=== PATIENT | male | born 1960 | race Caucasian/White ===

== ENCOUNTER 2023-08-13 15:01 | Inpatient (IN) | payer MEDICAID ==
[~2023-08-13] VITALS: Ht 177.8 cm; Wt 145.4 kg
[~2023-08-13 15:01] MED LIST: ACET325T55 PO; ASPI-1265 PO; ATOR40TA PO; CYCL-1 PO; LANS30CA37 PO; LISI40TA13 PO; RIVA20TA PO; VALP250C3 PO
[2023-08-13 19:50] LABS: BASOPHILS # (AUTO) 0.1 X10'3 (0-0.2); BASOPHILS % (AUTO) 0.4 % (0-1); EOSINOPHILS # (AUTO) 0.1 X10'3 (0-0.9); EOSINOPHILS % (AUTO) 0.8 % (0-6); HEMATOCRIT 50.7 % (42.0-52.0); HEMOGLOBIN 16.9 g/dl (14.0-17.9); LYMPHOCYTES # (AUTO) 3.5 X10'3 (1.1-4.8); MEAN CORPUSCULAR HGB CONC 33.3 g/dL (33.0-36.5); MEAN CORPUSCULAR VOLUME 87.1 FL (78-98); MEAN PLATELET VOLUME 8.1 FL (7.4-10.4); MONOCYTES # (AUTO) 0.9 X10'3 (0-0.9); MONOCYTES % (AUTO) 6.4 % (2-12); NEUTROPHILS # (AUTO) 9.8 X10'3 (1.8-7.7); NEUTROPHILS % (AUTO) 68.4 % (42-75); PLATELET COUNT 297 X10'3 (140-440); RED BLOOD COUNT 5.83 X10'6 (4.70-6.10); RED CELL DISTRIBUTION WIDTH 16.1 % (11.5-14.5); WHITE BLOOD COUNT 14.4 X10'3 (4.5-11.0)
[2023-08-13 20:17] LABS: ALBUMIN 3.8 G/DL (3.4-5.0); ANION GAP 12 (8-16); BLOOD UREA NITROGEN 9 MG/DL (7-18); BUN/CREATININE RATIO 11.3 (10.0-20.0); CALCIUM 8.6 MG/DL (8.5-10.1); CHLORIDE 100 MMOL/L (99-107); ETHANOL 269 MG/DL (<10); GLUCOSE 119 MG/DL (70-104); POTASSIUM 3.7 MMOL/L (3.5-5.1); SODIUM 138 MMOL/L (135-145); THYROID STIMULATING HORMONE 0.69 ulU/ml (0.34-4.50); TOTAL CARBON DIOXIDE 25.8 MMOL/L (24-32); eCRCL 98 ML/MIN; eGFR > 90 ML/MIN
[2023-08-13 21:14] LABS: BILIRUBIN,URINE NEGATIVE (Neg); CLARITY,URINE CLEAR (Clear); COLOR,URINE YELLOW (Yellow); GLUCOSE, URINE NEGATIVE (Neg); KETONES,URINE NEGATIVE (Neg); LEUKOCYTE ESTERASE ,URINE NEGATIVE (Neg); NITRITES, URINE NEGATIVE (Neg); OCCULT BLOOD,URINE NEGATIVE (Neg); PROTEIN,URINE NEGATIVE (Neg); UROBILINOGEN,URINE 0.2 E.U/dL (0.2-1.0)
[2023-08-13 21:21] LABS: UA COLLECTION TYPE CLN CATCH MIDSTREAM
[2023-08-13 21:32] LABS: URINE AMPHETAMINE SCREEN NEGATIVE (Neg); URINE BARBITUATE SCREEN NEGATIVE (Neg); URINE BENZODIAZEPINES SCREEN NEGATIVE (Neg); URINE CANNABINOID SCREEN POSITIVE (Neg); URINE COCAINE SCREEN NEGATIVE (Neg); URINE METHADONE SCREEN NEGATIVE (Neg); URINE OPIATE SCREEN NEGATIVE (Neg); URINE PHENCYCLIDINE SCREEN NEGATIVE (Neg)
[2023-08-14] MEDS: LORazepam 1 MG tablet PO ONE (00:08)
[2023-08-14] MEDS: LORazepam 2 mg/ml vial IM ONE (04:11)
[2023-08-14] MEDS ORDERED: magnesium 2GM in 50ml NS 50 ML IV PRN (04:40)
[2023-08-14] MEDS ORDERED: magnesium hydroxide 30ml (MOM) UD suspension PO PRN (04:40)
[2023-08-14] MEDS ORDERED: dextrose 50%-water 50ml dispensing syringe IV PRN (04:40)
[2023-08-14] MEDS ORDERED: potassium Cl 40MEQ/1/2NS 520ml 520 ML IV PRN (04:40)
[2023-08-14] MEDS ORDERED: magnesium 4gm in 100ml NS 100 ML IV PRN (04:40)
[2023-08-14] MEDS ORDERED: acetaminophen 325mg tablet PO PRN (04:40)
[2023-08-14] MEDS ORDERED: magnesium Cl slow-release 64mg tablet PO PRN (04:40)
[2023-08-14] MEDS ORDERED: ondansetron/PF 4mg/2ml inj IV PRN (04:40)
[2023-08-14] MEDS ORDERED: mag hydrox/Alum hydrox/simeth 30ml oral suspension PO PRN (04:40)
[2023-08-14] MEDS ORDERED: potassium Cl 20 mEq SR tablet PO PRN ×2 (04:40)
[2023-08-14 05:08] LABS: HEMOGLOBIN A1C 6.4 % (4.5-6.2)
[2023-08-14 05:14] LABS: MAGNESIUM 2.2 MG/DL (1.5-2.4); PHOSPHORUS 4.4 MG/DL (2.3-4.5)
[2023-08-14 05:31] VITALS: PULSE 120; RESP 35; O2SAT 95
[2023-08-14 07:16] VITALS: PULSE 104; RESP 29; O2SAT 93
[2023-08-14] MEDS: enoxaparin 40mg/0.4ml syringe SUBCUT SCH (08:00)
[2023-08-14] MEDS: K and/or MAG REPLACEMENT MC SCH (08:00)
[2023-08-14] MEDS: thiamine 100mg/ml 2ml inj. IV SCH (08:59)
[2023-08-14] MEDS: folic acid 1mg/0.2ml inj IV SCH (08:59)
[2023-08-14 11:23] VITALS: PULSE 107; RESP 25; O2SAT 96
[2023-08-14 12:38] LABS: ABG BASE EXCESS 0.1 mmol/L (-2.0-2.0); ABG OXYGEN SATURATION 95.7 % (94-97); ABG PCO2 (T) 40.4 mmHg (35.0-48.0); ABG PH (T) 7.406 (7.340-7.440); ABG PO2 (T) 77.3 mmHg (75.0-100.0); ALLEN'S TEST POSITIVE; FCOHb 1.2 % (0.0-3.9); FHHb 4.2 % (0.0-5.0); FMetHb 0.3 % (0.0-1.5); FO2Hb 94.3 % (94-97); MODE CPAP; PATIENT TEMPERATURE 36.5; PEEP 10 cm H2O; TOTAL HEMOGLOBIN 16.6 G/dl (14.0-17.9)
[2023-08-14] MEDS: LORazepam 2 mg/ml vial IV PRN (13:45)
[2023-08-14 16:14] VITALS: PULSE 108; RESP 30; O2SAT 97
[2023-08-14] MEDS: atenolol 50mg tablet PO SCH (17:35)
[2023-08-14 19:40] VITALS: PULSE 95; RESP 18; O2SAT 95
[2023-08-14] MEDS: haloperidol lactate 5mg/ml inj IM PRN (23:12)
[2023-08-15] MEDS: LORazepam 2 mg/ml vial IV PRN (01:31)
[2023-08-15 04:09] VITALS: PULSE 64; RESP 22; O2SAT 94
[2023-08-15 08:00] LABS: BASOPHILS # (AUTO) 0.1 X10'3 (0-0.2); BASOPHILS % (AUTO) 0.6 % (0-1); EOSINOPHILS # (AUTO) 0.1 X10'3 (0-0.9); EOSINOPHILS % (AUTO) 1.2 % (0-6); HEMATOCRIT 46.7 % (42.0-52.0); HEMOGLOBIN 15.3 g/dl (14.0-17.9); LYMPHOCYTES % (AUTO) 24.8 % (21-51); MEAN CORPUSCULAR HGB CONC 32.8 g/dL (33.0-36.5); MEAN CORPUSCULAR VOLUME 88.3 FL (78-98); MEAN PLATELET VOLUME 8.9 FL (7.4-10.4); MONOCYTES # (AUTO) 0.9 X10'3 (0-0.9); MONOCYTES % (AUTO) 7.7 % (2-12); NEUTROPHILS # (AUTO) 7.9 X10'3 (1.8-7.7); NEUTROPHILS % (AUTO) 65.7 % (42-75); PLATELET COUNT 279 X10'3 (140-440); RED BLOOD COUNT 5.29 X10'6 (4.70-6.10)
[2023-08-15 08:16] LABS: INR 0.9 INR; PROTHROMBIN TIME 10.2 SECONDS (9.0-12.0)
[2023-08-15] MEDS ORDERED: HYDROcodone/acetaminophen 10/325mg tab PO SCH (08:20)
[2023-08-15 08:27] VITALS: PULSE 80; RESP 16; O2SAT 94
[2023-08-15 08:44] LABS: ALANINE AMINOTRANSFERASE 41 U/L (12-78); ALBUMIN 3.3 G/DL (3.4-5.0); ALBUMIN/GLOBULIN RATIO 0.9 (1.1-1.5); ALKALINE PHOSPHATASE 117 IU/L (46-116); AMYLASE 26 U/L (25-115); ANION GAP 9 (8-16); ASPARTATE AMINO TRANSFERASE 21 U/L (10-37); BILIRUBIN,TOTAL 0.7 MG/DL (0.1-1.0); BLOOD UREA NITROGEN 15 MG/DL (7-18); BUN/CREATININE RATIO 17.4 (10.0-20.0); CALCIUM 8.8 MG/DL (8.5-10.1); CHLORIDE 102 MMOL/L (99-107); CHOL/HDL RATIO 4.7 (0.00-4.99); CHOLESTEROL 183 MG/DL (0-200); CREATININE 0.86 MG/DL (0.60-1.10); GLUCOSE 130 MG/DL (70-104); HDL CHOLESTEROL 39 MG/DL (35-60); LDL CHOLESTEROL 105 MG/DL (50-100); LIPASE 23 U/L (16-77); MAGNESIUM 2.2 MG/DL (1.5-2.4); PHOSPHORUS 3.6 MG/DL (2.3-4.5); POTASSIUM 4.6 MMOL/L (3.5-5.1); SODIUM 139 MMOL/L (135-145); TRIGLYCERIDES 175 MG/DL (20-135); eCRCL 91 ML/MIN; eGFR 90 ML/MIN
[2023-08-15] MEDS: HYDROcodone/acetaminophen 10/325mg tab PO PRN (10:26)
[2023-08-15] MEDS: LORazepam 2 mg/ml vial IM ONE (20:00)
[2023-08-15] MEDS: haloperidol lactate 5mg/ml inj IM ONE (20:00)
[2023-08-15] MEDS: rivaroxaban 20mg tablet PO SCH (21:00)
[2023-08-16 06:55] LABS: BASOPHILS # (AUTO) 0.1 X10'3 (0-0.2); BASOPHILS % (AUTO) 0.7 % (0-1); EOSINOPHILS # (AUTO) 0.1 X10'3 (0-0.9); HEMOGLOBIN 15.2 g/dl (14.0-17.9); LYMPHOCYTES # (AUTO) 1.9 X10'3 (1.1-4.8); LYMPHOCYTES % (AUTO) 21.7 % (21-51); MEAN CORPUSCULAR HEMOGLOBIN 29.3 PG (27.0-31.0); MEAN CORPUSCULAR VOLUME 88.7 FL (78-98); MEAN PLATELET VOLUME 8.9 FL (7.4-10.4); MONOCYTES # (AUTO) 0.7 X10'3 (0-0.9); MONOCYTES % (AUTO) 7.9 % (2-12); NEUTROPHILS # (AUTO) 6.2 X10'3 (1.8-7.7); NEUTROPHILS % (AUTO) 68.7 % (42-75); PLATELET COUNT 211 X10'3 (140-440); PROTHROMBIN TIME 10.4 SECONDS (9.0-12.0); RED BLOOD COUNT 5.19 X10'6 (4.70-6.10); RED CELL DISTRIBUTION WIDTH 16.2 % (11.5-14.5)
[2023-08-16] MEDS: LORazepam 1 MG tablet PO PRN (07:01)
[2023-08-16 07:32] LABS: ALANINE AMINOTRANSFERASE 45 U/L (12-78); ALBUMIN 3.1 G/DL (3.4-5.0); ALBUMIN/GLOBULIN RATIO 0.8 (1.1-1.5); ALKALINE PHOSPHATASE 105 IU/L (46-116); AMYLASE 25 U/L (25-115); ANION GAP 6 (8-16); ASPARTATE AMINO TRANSFERASE 23 U/L (10-37); BILIRUBIN,TOTAL 0.6 MG/DL (0.1-1.0); BLOOD UREA NITROGEN 12 MG/DL (7-18); BUN/CREATININE RATIO 15.4 (10.0-20.0); CALCIUM 8.2 MG/DL (8.5-10.1); CHLORIDE 104 MMOL/L (99-107); CREATININE 0.78 MG/DL (0.60-1.10); GLUCOSE 141 MG/DL (70-104); LIPASE 22 U/L (16-77); MAGNESIUM 2.4 MG/DL (1.5-2.4); PHOSPHORUS 5.3 MG/DL (2.3-4.5); POTASSIUM 4.2 MMOL/L (3.5-5.1); SODIUM 141 MMOL/L (135-145); TOTAL CARBON DIOXIDE 30.9 MMOL/L (24-32); TOTAL PROTEIN 6.9 G/DL (6.4-8.2); eCRCL 100 ML/MIN; eGFR > 90 ML/MIN
[2023-08-16] MEDS: NICOTINE POLACRILEX 2 MG LOZENGE BC PRN (15:33)
[2023-08-16 21:37] VITALS: PULSE 104; RESP 18; O2SAT 96
[2023-08-17 00:57] VITALS: PULSE 100; RESP 32; O2SAT 95
[2023-08-17] MEDS: traZODone 50mg tablet PO PRN (01:36)
[2023-08-17 07:07] VITALS: PULSE 84; RESP 16; O2SAT 93
[2023-08-17] MEDS: albuterol 2.5 MG/3 ML nebule NEB ONE ×2 (07:59→11:50)
[2023-08-17] MEDS: ipratropium 0.5 MG/2.5ML nebule IH ONE (07:59)
[2023-08-17] MEDS: budesonide 0.5mg/2ml UD nebule IH SCH (08:00)
[2023-08-17 08:04] LABS: BASOPHILS # (AUTO) 0.1 X10'3 (0-0.2); BASOPHILS % (AUTO) 0.9 % (0-1); EOSINOPHILS # (AUTO) 0.2 X10'3 (0-0.9); EOSINOPHILS % (AUTO) 2.3 % (0-6); HEMATOCRIT 45.6 % (42.0-52.0); HEMOGLOBIN 15.3 g/dl (14.0-17.9); LYMPHOCYTES # (AUTO) 2.3 X10'3 (1.1-4.8); MEAN CORPUSCULAR HEMOGLOBIN 29.6 PG (27.0-31.0); MEAN CORPUSCULAR HGB CONC 33.4 g/dL (33.0-36.5); MEAN CORPUSCULAR VOLUME 88.6 FL (78-98); MEAN PLATELET VOLUME 8.6 FL (7.4-10.4); MONOCYTES # (AUTO) 0.7 X10'3 (0-0.9); MONOCYTES % (AUTO) 7.3 % (2-12); NEUTROPHILS # (AUTO) 6.2 X10'3 (1.8-7.7); NEUTROPHILS % (AUTO) 65.5 % (42-75); PLATELET COUNT 223 X10'3 (140-440); RED BLOOD COUNT 5.15 X10'6 (4.70-6.10); RED CELL DISTRIBUTION WIDTH 16.2 % (11.5-14.5); WHITE BLOOD COUNT 9.4 X10'3 (4.5-11.0)
[2023-08-17 08:10] LABS: PROTHROMBIN TIME 10.4 SECONDS (9.0-12.0)
[2023-08-17 08:14] LABS: ALANINE AMINOTRANSFERASE 41 U/L (12-78); ALBUMIN 3.3 G/DL (3.4-5.0); ALBUMIN/GLOBULIN RATIO 0.9 (1.1-1.5); ALKALINE PHOSPHATASE 100 IU/L (46-116); AMYLASE 25 U/L (25-115); ANION GAP 9 (8-16); ASPARTATE AMINO TRANSFERASE 16 U/L (10-37); BILIRUBIN,TOTAL 0.5 MG/DL (0.1-1.0); BLOOD UREA NITROGEN 13 MG/DL (7-18); BUN/CREATININE RATIO 14.9 (10.0-20.0); CALCIUM 8.4 MG/DL (8.5-10.1); CHLORIDE 102 MMOL/L (99-107); CREATININE 0.87 MG/DL (0.60-1.10); GLUCOSE 135 MG/DL (70-104); LIPASE 17 U/L (16-77); MAGNESIUM 2.1 MG/DL (1.5-2.4); PHOSPHORUS 4.1 MG/DL (2.3-4.5); POTASSIUM 4.3 MMOL/L (3.5-5.1); SODIUM 141 MMOL/L (135-145); eCRCL 90 ML/MIN; eGFR 89 ML/MIN
[2023-08-17] MEDS: lisinopril 5mg tablet PO SCH (08:30)
[2023-08-17 11:51] VITALS: PULSE 80; RESP 18; O2SAT 96
[2023-08-17 11:59] VITALS: PULSE 86; RESP 18
[2023-08-17] MEDS ORDERED: FURO-150 PO (16:09)
[2023-08-17] MEDS: furosemide 20MG tablet PO ONE (17:36)
[2023-08-17 20:24] VITALS: PULSE 90; RESP 18; O2SAT 98
[2023-08-17] MEDS: atorvastatin 20mg tablet PO SCH (20:31)
[2023-08-17] MEDS: valproic acid 250mg capsule PO SCH (21:00)
[2023-08-18 03:03] LABS: PROTHROMBIN TIME 10.5 SECONDS (9.0-12.0)
[2023-08-18 03:07] LABS: ALANINE AMINOTRANSFERASE 39 U/L (12-78); ALBUMIN 3.2 G/DL (3.4-5.0); ALBUMIN/GLOBULIN RATIO 0.9 (1.1-1.5); ALKALINE PHOSPHATASE 95 IU/L (46-116); AMYLASE 25 U/L (25-115); ANION GAP 7 (8-16); ASPARTATE AMINO TRANSFERASE 14 U/L (10-37); BILIRUBIN,TOTAL 0.6 MG/DL (0.1-1.0); BLOOD UREA NITROGEN 14 MG/DL (7-18); BUN/CREATININE RATIO 14.3 (10.0-20.0); CALCIUM 8.5 MG/DL (8.5-10.1); CHLORIDE 106 MMOL/L (99-107); CREATININE 0.98 MG/DL (0.60-1.10); GLUCOSE 163 MG/DL (70-104); LIPASE 19 U/L (16-77); MAGNESIUM 2.2 MG/DL (1.5-2.4); PHOSPHORUS 4.4 MG/DL (2.3-4.5); SODIUM 142 MMOL/L (135-145); TOTAL CARBON DIOXIDE 28.7 MMOL/L (24-32); TOTAL PROTEIN 6.9 G/DL (6.4-8.2); eCRCL 80 ML/MIN; eGFR 77 ML/MIN
[2023-08-18 03:14] LABS: BASOPHILS # (AUTO) 0.1 X10'3 (0-0.2); BASOPHILS % (AUTO) 0.6 % (0-1); EOSINOPHILS # (AUTO) 0.3 X10'3 (0-0.9); EOSINOPHILS % (AUTO) 2.3 % (0-6); HEMATOCRIT 44.8 % (42.0-52.0); LYMPHOCYTES # (AUTO) 2.3 X10'3 (1.1-4.8); LYMPHOCYTES % (AUTO) 21.2 % (21-51); MEAN CORPUSCULAR HEMOGLOBIN 29.8 PG (27.0-31.0); MEAN CORPUSCULAR HGB CONC 33.6 g/dL (33.0-36.5); MEAN CORPUSCULAR VOLUME 88.7 FL (78-98); MONOCYTES # (AUTO) 0.8 X10'3 (0-0.9); MONOCYTES % (AUTO) 7.4 % (2-12); NEUTROPHILS # (AUTO) 7.5 X10'3 (1.8-7.7); NEUTROPHILS % (AUTO) 68.5 % (42-75); PLATELET COUNT 208 X10'3 (140-440); RED BLOOD COUNT 5.05 X10'6 (4.70-6.10); RED CELL DISTRIBUTION WIDTH 16.5 % (11.5-14.5); WHITE BLOOD COUNT 10.9 X10'3 (4.5-11.0)
[2023-08-18] MEDS: furosemide 20MG tablet PO SCH (08:00)
[2023-08-18] MEDS: cyclobenzaprine 10mg tablet PO PRN (08:26)
[2023-08-18] MEDS: folic acid 1mg tablet PO SCH (08:28)
[2023-08-18] MEDS: thiamine 100mg tablet PO SCH (08:28)
[2023-08-18 09:07] VITALS: PULSE 102; PULSE 99; RESP 16; O2SAT 99
[2023-08-19 07:36] LABS: BASOPHILS # (AUTO) 0.1 X10'3 (0-0.2); BASOPHILS % (AUTO) 0.8 % (0-1); EOSINOPHILS # (AUTO) 0.3 X10'3 (0-0.9); EOSINOPHILS % (AUTO) 2.7 % (0-6); HEMATOCRIT 46.1 % (42.0-52.0); HEMOGLOBIN 15.1 g/dl (14.0-17.9); LYMPHOCYTES # (AUTO) 2.6 X10'3 (1.1-4.8); LYMPHOCYTES % (AUTO) 23.3 % (21-51); MEAN CORPUSCULAR HEMOGLOBIN 29.7 PG (27.0-31.0); MEAN CORPUSCULAR HGB CONC 32.9 g/dL (33.0-36.5); MEAN CORPUSCULAR VOLUME 90.4 FL (78-98); MONOCYTES % (AUTO) 8.7 % (2-12); NEUTROPHILS # (AUTO) 7.1 X10'3 (1.8-7.7); NEUTROPHILS % (AUTO) 64.5 % (42-75); PLATELET COUNT 214 X10'3 (140-440); RED CELL DISTRIBUTION WIDTH 16.6 % (11.5-14.5)
[2023-08-19 07:58] LABS: ALANINE AMINOTRANSFERASE 35 U/L (12-78); ALBUMIN 3.3 G/DL (3.4-5.0); ALBUMIN/GLOBULIN RATIO 0.9 (1.1-1.5); ALKALINE PHOSPHATASE 95 IU/L (46-116); AMYLASE 26 U/L (25-115); ANION GAP 9 (8-16); ASPARTATE AMINO TRANSFERASE 16 U/L (10-37); BILIRUBIN,TOTAL 0.4 MG/DL (0.1-1.0); BLOOD UREA NITROGEN 14 MG/DL (7-18); BUN/CREATININE RATIO 16.9 (10.0-20.0); CALCIUM 8.2 MG/DL (8.5-10.1); CHLORIDE 106 MMOL/L (99-107); CREATININE 0.83 MG/DL (0.60-1.10); GLUCOSE 122 MG/DL (70-104); LIPASE 22 U/L (16-77); MAGNESIUM 2.2 MG/DL (1.5-2.4); PHOSPHORUS 5.3 MG/DL (2.3-4.5); POTASSIUM 4.3 MMOL/L (3.5-5.1); SODIUM 142 MMOL/L (135-145); TOTAL CARBON DIOXIDE 27.3 MMOL/L (24-32); eCRCL 94 ML/MIN; eGFR > 90 ML/MIN
[2023-08-19 08:52] VITALS: PULSE 74; RESP 17; O2SAT 97
[2023-08-19 08:57] VITALS: PULSE 70; RESP 17
[2023-08-20 09:28] VITALS: PULSE 89; RESP 14; O2SAT 91
[2023-08-21 08:34] VITALS: PULSE 92; RESP 16; O2SAT 97
[2023-08-21 08:40] VITALS: BP 141/96; TEMP 97.6; O2SAT 96
[2023-08-21 08:42] VITALS: PULSE 92; RESP 16
[2023-08-21 08:52] VITALS: RESP 18
== END 2023-08-21 11:05 | DRG 775 ==
LOC: ER 15:02 → ED HOLD 08-14 04:46
PROVIDERS: ADMIT Internal Medicine; ATTEND Internal Medicine
PROC: 5A09357 Assistance with Respiratory Ventilation, Less than 24 Consecutive Hours, Continuous Positive Airway Pressure (ICD-10-PCS; principal; 2023-08-14)
PROC: 5A09357 Assistance with Respiratory Ventilation, Less than 24 Consecutive Hours, Continuous Positive Airway Pressure (ICD-10-PCS; 2023-08-15)
PROC: 5A09357 Assistance with Respiratory Ventilation, Less than 24 Consecutive Hours, Continuous Positive Airway Pressure (ICD-10-PCS; 2023-08-16)
DX: F10.121 Alcohol abuse with intoxication delirium (principal); I48.20 Chronic atrial fibrillation, unspecified; R45.851 Suicidal ideations; D72.829 Elevated white blood cell count, unspecified; G62.9 Polyneuropathy, unspecified; F17.210 Nicotine dependence, cigarettes, uncomplicated; Z20.822 Contact with and (suspected) exposure to COVID-19; F10.131 Alcohol abuse with withdrawal delirium; F31.9 Bipolar disorder, unspecified; F41.9 Anxiety disorder, unspecified; G89.29 Other chronic pain; R07.9 Chest pain, unspecified; I10 Essential (primary) hypertension; I25.10 Atherosclerotic heart disease of native coronary artery without angina pectoris; Z87.11 Personal history of peptic ulcer disease; I25.2 Old myocardial infarction; Z82.3 Family history of stroke; Z83.3 Family history of diabetes mellitus; Z88.5 Allergy status to narcotic agent
CPT/HCPCS: 36415; 36600; 80048; 80053; 80061; 80305; 80320; 81003; 82150; 82803; 83036; 83690; 83735; 84100; 84443; 84484; 85018; 85025; 85610; 87811; 93005; 94640; 94660; 94760; 99285; G0378; J1630; J1650; J2060; J3411; J3490

== ENCOUNTER 2023-09-11 04:00 | Inpatient (IN) | payer OTHER, MEDICAID ==
[~2023-09-11] VITALS: Ht 175.3 cm; Wt 142.3 kg
[~2023-09-11 04:00] MED LIST changes: -ASPI-1265 PO; +FURO-150 PO; -LANS30CA37 PO
[2023-09-11 05:03] LABS: BILIRUBIN,URINE NEGATIVE (Neg); CLARITY,URINE CLEAR (Clear); COLOR,URINE YELLOW (Yellow); GLUCOSE, URINE NEGATIVE (Neg); KETONES,URINE TRACE mg/dl (Neg); LEUKOCYTE ESTERASE ,URINE NEGATIVE (Neg); NITRITES, URINE NEGATIVE (Neg); OCCULT BLOOD,URINE NEGATIVE (Neg); PROTEIN,URINE NEGATIVE (Neg); UROBILINOGEN,URINE 0.2 E.U/dL (0.2-1.0)
[2023-09-11 05:03] LABS: BASOPHILS # (AUTO) 0.1 X10'3 (0-0.2); BASOPHILS % (AUTO) 0.6 % (0-1); EOSINOPHILS # (AUTO) 0.1 X10'3 (0-0.9); HEMATOCRIT 45.9 % (42.0-52.0); HEMOGLOBIN 15.2 g/dl (14.0-17.9); LYMPHOCYTES # (AUTO) 1.8 X10'3 (1.1-4.8); LYMPHOCYTES % (AUTO) 15.8 % (21-51); MEAN CORPUSCULAR HEMOGLOBIN 29.8 PG (27.0-31.0); MEAN CORPUSCULAR HGB CONC 33.1 g/dL (33.0-36.5); MEAN CORPUSCULAR VOLUME 89.9 FL (78-98); MEAN PLATELET VOLUME 8.6 FL (7.4-10.4); MONOCYTES # (AUTO) 0.7 X10'3 (0-0.9); MONOCYTES % (AUTO) 6.1 % (2-12); NEUTROPHILS # (AUTO) 8.6 X10'3 (1.8-7.7); NEUTROPHILS % (AUTO) 76.5 % (42-75); PLATELET COUNT 259 X10'3 (140-440); RED BLOOD COUNT 5.11 X10'6 (4.70-6.10); RED CELL DISTRIBUTION WIDTH 16.2 % (11.5-14.5); WHITE BLOOD COUNT 11.3 X10'3 (4.5-11.0)
[2023-09-11 05:05] LABS: UA COLLECTION TYPE CLN CATCH MIDSTREAM
[2023-09-11 05:30] LABS: ALBUMIN 3.5 G/DL (3.4-5.0); ANION GAP 14 (8-16); BLOOD UREA NITROGEN 10 MG/DL (7-18); BUN/CREATININE RATIO 10.1 (10.0-20.0); CALCIUM 8.3 MG/DL (8.5-10.1); CHLORIDE 105 MMOL/L (99-107); CREATININE 0.99 MG/DL (0.60-1.10); ETHANOL < 10 MG/DL (<10); GLUCOSE 120 MG/DL (70-104); POTASSIUM 3.6 MMOL/L (3.5-5.1); SODIUM 144 MMOL/L (135-145); THYROID STIMULATING HORMONE 0.95 ulU/ml (0.34-4.50); TOTAL CARBON DIOXIDE 25.5 MMOL/L (24-32); eCRCL 75 ML/MIN; eGFR 76 ML/MIN
[2023-09-11 05:32] LABS: URINE AMPHETAMINE SCREEN NEGATIVE (Neg); URINE BARBITUATE SCREEN NEGATIVE (Neg); URINE BENZODIAZEPINES SCREEN NEGATIVE (Neg); URINE CANNABINOID SCREEN POSITIVE (Neg); URINE COCAINE SCREEN NEGATIVE (Neg); URINE METHADONE SCREEN NEGATIVE (Neg); URINE OPIATE SCREEN NEGATIVE (Neg); URINE PHENCYCLIDINE SCREEN NEGATIVE (Neg)
[2023-09-11] MEDS ORDERED: GABA300T28 PO (06:14)
[2023-09-11] MEDS ORDERED: ACET-1015 PO (06:14)
[2023-09-11] MEDS ORDERED: METO-395 PO (06:14)
[2023-09-11] MEDS ORDERED: SERT-153 PO (06:14)
[2023-09-11] MEDS ORDERED: ATOR20TA66 PO (06:16)
[2023-09-11] MEDS ORDERED: POTA-208 PO (06:18)
[2023-09-11] MEDS ORDERED: LAMO150T6 PO (06:19)
[2023-09-11] MEDS ORDERED: LISI-642 PO (13:48)
[2023-09-11] MEDS: rivaroxaban 20mg tablet PO SCH (20:49)
[2023-09-11] MEDS: potassium Cl 20 mEq SR tablet PO SCH (20:49)
[2023-09-11] MEDS: gabapentin 300mg capsule PO SCH (20:49)
[2023-09-11] MEDS: furosemide 20MG tablet PO SCH (20:49)
[2023-09-11] MEDS: valproic acid 250mg capsule PO SCH (20:50)
[2023-09-12] MEDS: metoprolol succinate 25mg (24-HOUR) SR. Tablet PO SCH (08:00)
[2023-09-12] MEDS: lisinopril 5mg tablet PO SCH (08:00)
[2023-09-12] MEDS: sertraline 50mg tablet PO SCH (08:48)
[2023-09-12] MEDS: lamoTRIgine 100mg tablet PO SCH (08:49)
[2023-09-12] MEDS: lamoTRIgine 25mg tablet PO SCH (08:49)
[2023-09-12] MEDS: atorvastatin 20mg tablet PO SCH (08:49)
[2023-09-12] MEDS ORDERED: lisinopril 10 MG tablet PO ONE (20:05)
[2023-09-12] MEDS: chlordiazePOXIDE 25mg capsule PO ONE (20:19)
[2023-09-12] MEDS: lisinopril 5mg tablet PO ONE (20:20)
[2023-09-13] MEDS: acetaminophen 325mg tablet PO PRN (08:00)
[2023-09-13 12:17] VITALS: PULSE 94; RESP 18; O2SAT 94
[2023-09-13] MEDS: ipratropium/albuterol 3ml nebule NEB SCH (12:17)
[2023-09-13 12:25] VITALS: PULSE 98; RESP 18
[2023-09-13] MEDS ORDERED: mag hydrox/Alum hydrox/simeth 30ml oral suspension PO PRN (23:20)
[2023-09-13] MEDS ORDERED: magnesium hydroxide 30ml (MOM) UD suspension PO PRN (23:20)
[2023-09-13] MEDS ORDERED: loperamide 2mg capsule PO PRN (23:20)
[2023-09-13 23:23] VITALS: RESP 15; O2SAT 95
[2023-09-13 23:28] VITALS: BP 109/73; PULSE 73; RESP 15; TEMP 98; O2SAT 95
[2023-09-14 07:00] VITALS: RESP 16; O2SAT 90
[2023-09-14 08:00] VITALS: BP 112/65; PULSE 86; RESP 16; TEMP 97; O2SAT 90
[2023-09-14 11:20] VITALS: PULSE 93; PULSE 98; RESP 16; RESP 18; O2SAT 96
[2023-09-14 11:36] LABS: CHOL/HDL RATIO 3.2 (0.00-4.99); CHOLESTEROL 152 MG/DL (0-200); HDL CHOLESTEROL 48 MG/DL (35-60); LDL CHOLESTEROL 83 MG/DL (50-100); TRIGLYCERIDES 130 MG/DL (20-135)
[2023-09-14 19:00] VITALS: RESP 16; O2SAT 94
[2023-09-14] MEDS ORDERED: NICOTINE POLACRILEX 4 MG LOZENGE BC PRN (19:50)
[2023-09-14] MEDS: nicotine 14mg patch - 24hr TD SCH (19:50)
[2023-09-14 20:00] VITALS: BP 123/74; PULSE 96; RESP 16; TEMP 98.4; O2SAT 94
[2023-09-14] MEDS ORDERED: NICOTINE POLACRILEX 2 MG LOZENGE BC PRN (20:02)
[2023-09-15 07:30] VITALS: BP 115/67; PULSE 94; RESP 20; TEMP 97.6; O2SAT 94
[2023-09-15] MEDS: atorvastatin 20mg tablet PO SCH (07:37)
[2023-09-15] MEDS: sertraline 50mg tablet PO SCH (07:38)
[2023-09-15 10:47] VITALS: PULSE 81; RESP 16; O2SAT 90
[2023-09-15 10:56] VITALS: PULSE 87; RESP 16
[2023-09-15 19:00] VITALS: RESP 16; O2SAT 94
[2023-09-15 20:00] VITALS: BP 117/73; PULSE 89; RESP 16; TEMP 97.5; O2SAT 94
[2023-09-16] VITALS (7 sets, daily range): BP systolic 117–126; BP diastolic 58–75; PULSE 67–98; RESP 16–18; TEMP 98.2; O2SAT 92–94
[2023-09-16] MEDS: potassium Cl 20 mEq SR tablet PO SCH (15:30)
[2023-09-16] MEDS: furosemide 20MG tablet PO SCH (15:30)
[2023-09-16] MEDS: traZODone 50mg tablet PO PRN (21:45)
[2023-09-16] MEDS: gabapentin 300mg capsule PO SCH (21:45)
[2023-09-17] VITALS (7 sets, daily range): BP systolic 96–107; BP diastolic 51–72; PULSE 74–83; RESP 16–18; TEMP 97.5–98; O2SAT 91–92
[2023-09-17] MEDS: LIDOcaine 5% patch TP SCH (07:39)
[2023-09-17] MEDS: ibuprofen tablet 400 MG TABLET PO SCH (07:43)
[2023-09-17] MEDS: acetaminophen 325mg tablet PO PRN (20:49)
[2023-09-18 07:00] VITALS: RESP 18; O2SAT 97
[2023-09-18 08:00] VITALS: BP 120/77; PULSE 87; RESP 18; TEMP 97.7; O2SAT 97
[2023-09-18 10:19] VITALS: PULSE 83; PULSE 85; RESP 18; O2SAT 94
[2023-09-18 19:00] VITALS: RESP 18; O2SAT 94
[2023-09-18 19:56] VITALS: BP 107/62; PULSE 82; RESP 18; TEMP 98; O2SAT 94
[2023-09-18 19:58] VITALS: PULSE 84; RESP 16; O2SAT 92
[2023-09-19] VITALS (7 sets, daily range): BP systolic 114–129; BP diastolic 60–66; PULSE 67–88; RESP 14–18; TEMP 98; O2SAT 91–95
[2023-09-19 10:28] LABS: BASOPHILS % (AUTO) 0.5 % (0-1); EOSINOPHILS # (AUTO) 0.3 X10'3 (0-0.9); EOSINOPHILS % (AUTO) 2.8 % (0-6); HEMATOCRIT 44.3 % (42.0-52.0); HEMOGLOBIN 14.5 g/dl (14.0-17.9); LYMPHOCYTES # (AUTO) 1.9 X10'3 (1.1-4.8); LYMPHOCYTES % (AUTO) 20.8 % (21-51); MEAN CORPUSCULAR HEMOGLOBIN 29.9 PG (27.0-31.0); MEAN CORPUSCULAR HGB CONC 32.8 g/dL (33.0-36.5); MEAN CORPUSCULAR VOLUME 91.2 FL (78-98); MONOCYTES # (AUTO) 0.6 X10'3 (0-0.9); MONOCYTES % (AUTO) 6.8 % (2-12); NEUTROPHILS # (AUTO) 6.3 X10'3 (1.8-7.7); NEUTROPHILS % (AUTO) 69.1 % (42-75); PLATELET COUNT 190 X10'3 (140-440); RED BLOOD COUNT 4.85 X10'6 (4.70-6.10); RED CELL DISTRIBUTION WIDTH 16.4 % (11.5-14.5); WHITE BLOOD COUNT 9.1 X10'3 (4.5-11.0)
[2023-09-19 10:43] LABS: ALANINE AMINOTRANSFERASE 25 U/L (12-78); ALBUMIN 3.1 G/DL (3.4-5.0); ALBUMIN/GLOBULIN RATIO 0.9 (1.1-1.5); ALKALINE PHOSPHATASE 82 IU/L (46-116); ANION GAP 5 (8-16); ASPARTATE AMINO TRANSFERASE 11 U/L (10-37); BILIRUBIN,TOTAL 0.3 MG/DL (0.1-1.0); BLOOD UREA NITROGEN 15 MG/DL (7-18); BUN/CREATININE RATIO 16.7 (10.0-20.0); CALCIUM 8.4 MG/DL (8.5-10.1); CHLORIDE 106 MMOL/L (99-107); GLUCOSE 149 MG/DL (70-104); POTASSIUM 4.4 MMOL/L (3.5-5.1); SODIUM 142 MMOL/L (135-145); TOTAL CARBON DIOXIDE 30.7 MMOL/L (24-32); TOTAL PROTEIN 6.5 G/DL (6.4-8.2); eCRCL 83 ML/MIN; eGFR 85 ML/MIN
[2023-09-20 07:00] VITALS: RESP 18; O2SAT 94
[2023-09-20 07:48] VITALS: BP 130/88; PULSE 75; RESP 12; TEMP 97; O2SAT 94
[2023-09-20 08:23] VITALS: PULSE 97; RESP 18; O2SAT 93
[2023-09-20 11:59] LABS: ALANINE AMINOTRANSFERASE 27 U/L (12-78); ALBUMIN 3.2 G/DL (3.4-5.0); ALBUMIN/GLOBULIN RATIO 0.9 (1.1-1.5); ALKALINE PHOSPHATASE 83 IU/L (46-116); ANION GAP 12 (8-16); ASPARTATE AMINO TRANSFERASE 7 U/L (10-37); BILIRUBIN,TOTAL 0.3 MG/DL (0.1-1.0); BLOOD UREA NITROGEN 13 MG/DL (7-18); BUN/CREATININE RATIO 14.6 (10.0-20.0); CHLORIDE 106 MMOL/L (99-107); CREATININE 0.89 MG/DL (0.60-1.10); GLUCOSE 122 MG/DL (70-104); POTASSIUM 4.5 MMOL/L (3.5-5.1); SODIUM 147 MMOL/L (135-145); TOTAL CARBON DIOXIDE 29.2 MMOL/L (24-32); TOTAL PROTEIN 6.9 G/DL (6.4-8.2); eCRCL 84 ML/MIN; eGFR 86 ML/MIN
[2023-09-20 19:00] VITALS: RESP 18; O2SAT 96
[2023-09-20 20:00] VITALS: BP 162/94; PULSE 83; RESP 18; TEMP 98.4; O2SAT 96
[2023-09-20 21:02] VITALS: PULSE 83; RESP 16; O2SAT 91
[2023-09-21] VITALS (7 sets, daily range): BP systolic 110–134; BP diastolic 53–93; PULSE 70–92; RESP 14–18; TEMP 97.5–98.5; O2SAT 91–97
[2023-09-22 07:00] VITALS: RESP 16; O2SAT 95
[2023-09-22 08:00] VITALS: BP 124/67; PULSE 72; RESP 16; TEMP 97.8; O2SAT 95
[2023-09-22 19:00] VITALS: BP 99/54; PULSE 94; RESP 14; TEMP 97.5; O2SAT 94
[2023-09-22 19:33] VITALS: PULSE 69; RESP 16; O2SAT 93
[2023-09-23] VITALS (7 sets, daily range): BP systolic 109–110; BP diastolic 60–68; PULSE 70–95; RESP 16–18; TEMP 97.2–97.7; O2SAT 91–94
[2023-09-24 07:30] VITALS: RESP 20; O2SAT 92
[2023-09-24 08:15] VITALS: BP 111/80; PULSE 89; RESP 16; TEMP 97.6; O2SAT 91
[2023-09-24 08:28] VITALS: PULSE 80; RESP 16; O2SAT 94
[2023-09-24 08:33] VITALS: PULSE 94; RESP 17
[2023-09-24] MEDS: acetaminophen 325mg tablet PO PRN (11:21)
[2023-09-24] MEDS ORDERED: VALP250C3 PO (11:48)
[2023-09-24] MEDS ORDERED: METO-395 PO (11:48)
[2023-09-24] MEDS ORDERED: ATOR40TA71 PO (11:48)
[2023-09-24] MEDS ORDERED: FURO20TA4 PO (11:48)
[2023-09-24] MEDS ORDERED: POTA-197 PO (11:48)
[2023-09-24] MEDS ORDERED: LAMO100T PO (11:48)
[2023-09-24] MEDS ORDERED: NICO-907 BC (11:48)
[2023-09-24] MEDS ORDERED: LAMO25TA5 PO (11:48)
[2023-09-24] MEDS ORDERED: SERT-153 PO (11:48)
[2023-09-24] MEDS ORDERED: SERT-433 PO (11:48)
[2023-09-24] MEDS ORDERED: TRAZ-251 PO (11:48)
[2023-09-24] MEDS ORDERED: gabapentin capsule PO (11:48)
[2023-09-24] MEDS ORDERED: RIVA20TA PO (11:48)
[2023-09-24] MEDS ORDERED: LISI-642 PO (11:48)
== END 2023-09-24 16:23 | disposition home or self-care (01) | DRG 885 ==
LOC: ER 04:00 → ADULT MH 09-13 16:00 → ER 09-13 22:25
PROVIDERS: ADMIT Psychiatry & Neurology Psychiatry; ATTEND Psychiatry & Neurology Psychiatry
PROC: 5A09357 Assistance with Respiratory Ventilation, Less than 24 Consecutive Hours, Continuous Positive Airway Pressure (ICD-10-PCS; principal; 2023-09-16)
DX: F33.1 Major depressive disorder, recurrent, moderate (principal); R45.851 Suicidal ideations; Z59.00 Homelessness unspecified; Z68.42 Body mass index [BMI] 45.0-49.9, adult; G89.29 Other chronic pain; I25.10 Atherosclerotic heart disease of native coronary artery without angina pectoris; F41.9 Anxiety disorder, unspecified; I10 Essential (primary) hypertension; E78.00 Pure hypercholesterolemia, unspecified; F43.10 Post-traumatic stress disorder, unspecified; G47.33 Obstructive sleep apnea (adult) (pediatric); F17.210 Nicotine dependence, cigarettes, uncomplicated; E66.01 Morbid (severe) obesity due to excess calories; G62.9 Polyneuropathy, unspecified; F10.20 Alcohol dependence, uncomplicated; Y90.0 Blood alcohol level of less than 20 mg/100 ml; M54.50 Low back pain, unspecified; Z20.822 Contact with and (suspected) exposure to COVID-19; Z83.3 Family history of diabetes mellitus; Z82.3 Family history of stroke; I69.331 Monoplegia of upper limb following cerebral infarction affecting right dominant side; I25.2 Old myocardial infarction; Z87.11 Personal history of peptic ulcer disease; Z63.4 Disappearance and death of family member; Z95.5 Presence of coronary angioplasty implant and graft; Z88.5 Allergy status to narcotic agent; Z79.899 Other long term (current) drug therapy; Z71.6 Tobacco abuse counseling
CPT/HCPCS: 36415; 80048; 80053; 80061; 80305; 80320; 81003; 82948; 83036; 83721; 84443; 85025; 87081; 87811; 94640; 94660; 94760; 99285

== ENCOUNTER 2024-04-13 13:03 | Inpatient (IN) | payer OTHER, MEDICAID ==
[~2024-04-13] VITALS: Ht 175.3 cm; Wt 141.0 kg
[2024-04-13] VITALS (17 sets, daily range): BP systolic 106–168; BP diastolic 69–90; PULSE 82–120; RESP 16–20; O2SAT 88–97
[~2024-04-13 13:03] MED LIST changes: +ACET-1015 PO; -ACET325T55 PO; -ATOR40TA PO; +ATOR40TA71 PO; -CYCL-1 PO; -FURO-150 PO; +FURO20TA4 PO; +LAMO100T PO; +LAMO25TA5 PO; +LISI-642 PO; -LISI40TA13 PO; +METO-395 PO; +NICO-907 BC; +POTA-197 PO; +SERT-153 PO; +SERT-433 PO; +TRAZ-251 PO; +gabapentin capsule PO; +rocuronium 10mg/ml inj IV ONE
[2024-04-13 13:29] LABS: BASOPHILS # (AUTO) 0.1 X10'3 (0-0.2); BASOPHILS % (AUTO) 1.4 % (0-1); EOSINOPHILS % (AUTO) 0.3 % (0-6); HEMATOCRIT 49.1 % (42.0-52.0); LYMPHOCYTES # (AUTO) 2.3 X10'3 (1.1-4.8); MEAN CORPUSCULAR HEMOGLOBIN 29.5 PG (27.0-31.0); MEAN CORPUSCULAR HGB CONC 32.6 g/dL (33.0-36.5); MEAN CORPUSCULAR VOLUME 90.4 FL (78-98); MONOCYTES # (AUTO) 0.8 X10'3 (0-0.9); MONOCYTES % (AUTO) 8.7 % (2-12); NEUTROPHILS % (AUTO) 64.6 % (42-75); PLATELET COUNT 267 X10'3 (140-440); RED BLOOD COUNT 5.43 X10'6 (4.70-6.10); RED CELL DISTRIBUTION WIDTH 16.4 % (11.5-14.5); WHITE BLOOD COUNT 9.2 X10'3 (4.5-11.0)
[2024-04-13 13:46] LABS: ALANINE AMINOTRANSFERASE 87 U/L (12-78); ALBUMIN 3.3 G/DL (3.4-5.0); ALBUMIN/GLOBULIN RATIO 0.8 (1.1-1.5); ALKALINE PHOSPHATASE 130 IU/L (46-116); ANION GAP 10 (8-16); ASPARTATE AMINO TRANSFERASE 82 U/L (10-37); BILIRUBIN,TOTAL 0.4 MG/DL (0.1-1.0); BLOOD UREA NITROGEN 2 MG/DL (7-18); BUN/CREATININE RATIO 2.6 (10.0-20.0); CALCIUM 7.6 MG/DL (8.5-10.1); CHLORIDE 100 MMOL/L (99-107); CREATININE 0.78 MG/DL (0.60-1.10); GLUCOSE 127 MG/DL (70-104); POTASSIUM 3.9 MMOL/L (3.5-5.1); SODIUM 139 MMOL/L (135-145); TOTAL CARBON DIOXIDE 29.3 MMOL/L (24-32); TOTAL PROTEIN 7.2 G/DL (6.4-8.2); eCRCL 96 ML/MIN; eGFR > 90 ML/MIN
[2024-04-13 13:53] LABS: PRO BRAIN NATRIURETIC PEPTIDE 45 PG/ML (0-125)
[2024-04-13] MEDS: normal saline 1000ml 1,000 ML IV ONE (14:35)
[2024-04-13] MEDS: diphenhydrAMINE 50 mg/ml inj IV ONE (15:00)
[2024-04-13] MEDS: haloperidol lactate 5mg/ml inj IM ONE (15:00)
[2024-04-13] MEDS: LORazepam 2 mg/ml vial IV ONE (15:05)
[2024-04-13] MEDS: rocuronium 10mg/ml inj IV ONE ×2 (15:18→15:24)
[2024-04-13] MEDS: etomidate 2mg/ml inj. IV ONE ×2 (15:18→15:24)
[2024-04-13] MEDS ORDERED: FENTANYL-0.9 % NACL/PF 100 ML IV SCH (15:55)
[2024-04-13] MEDS ORDERED: fentaNYL/PF 50MCG/1 ML 2ML syringe IV PRN (15:55)
[2024-04-13 16:01] LABS: ABG BASE EXCESS -4.1 mmol/L (-2.0-3.0); ABG HCO3 28.2 mmol/L (21.0-28.0); ABG PCO2 (T) 86.9 mmHg (35.0-48.0); ABG PH (T) 7.129 (7.350-7.450); ABG PO2 (T) 96.2 mmHg (83.0-108.0); ALLEN'S TEST POSITIVE; FCOHb 3.9 % (0.5-1.5); FHHb 5.7 % (0.0-5.0); FMetHb 0.4 % (0.0-1.5); MODE VENT - AC; RESPIRATORY RATE 16 b/min; TIDAL VOLUME 400 mL; TOTAL HEMOGLOBIN 17.3 G/dl (13.5-17.5)
[2024-04-13] MEDS ORDERED: magnesium hydroxide 30ml (MOM) UD suspension PO PRN (16:10)
[2024-04-13] MEDS ORDERED: acetaminophen 325mg tablet PO PRN (16:10)
[2024-04-13] MEDS: normal saline 1000ml 1,000 ML IV SCH (16:10)
[2024-04-13] MEDS: FENTANYL-0.9 % NACL/PF 100 ML IV SCH (16:37)
[2024-04-13] MEDS: propofol 1000mg/100ml bottle 100 ML IV SCH (16:38)
[2024-04-13] MEDS: LidoCAINE 2% Topical Jelly 11mL syringe (UROJET) TOP ONE (16:38)
[2024-04-13] MEDS: propofol 1000mg/100ml bottle 100 ML IV ONE (16:39)
[2024-04-13 17:11] LABS: URINE AMPHETAMINE SCREEN NEGATIVE (Neg); URINE BARBITUATE SCREEN NEGATIVE (Neg); URINE BENZODIAZEPINES SCREEN NEGATIVE (Neg); URINE CANNABINOID SCREEN POSITIVE (Neg); URINE COCAINE SCREEN NEGATIVE (Neg); URINE METHADONE SCREEN NEGATIVE (Neg); URINE OPIATE SCREEN NEGATIVE (Neg); URINE PHENCYCLIDINE SCREEN NEGATIVE (Neg)
[2024-04-13] MEDS ORDERED: LORazepam 2 mg/ml vial IV PRN ×2 (17:20)
[2024-04-13] MEDS ORDERED: dextrose 50%-water 50ml dispensing syringe IV PRN (17:20)
[2024-04-13] MEDS ORDERED: haloperidol lactate 5mg/ml inj IM PRN (17:20)
[2024-04-13] MEDS: pantoprazole 40 MG vial IV SCH (17:53)
[2024-04-13] MEDS: folic acid 1mg/0.2ml inj IV SCH (18:01)
[2024-04-13] MEDS: ipratropium/albuterol 3ml nebule NEB SCH (19:14)
[2024-04-13 19:39] LABS: ABG BASE EXCESS 2.8 mmol/L (-2.0-3.0); ABG HCO3 31.1 mmol/L (21.0-28.0); ABG OXYGEN SATURATION 92.7 % (94.0-98.0); ABG PCO2 (T) 59.8 mmHg (35.0-48.0); ABG PO2 (T) 67.9 mmHg (83.0-108.0); ALLEN'S TEST POSITIVE; FCOHb 2.4 % (0.5-1.5); FHHb 7.1 % (0.0-5.0); FMetHb 0.1 % (0.0-1.5); FO2Hb 90.4 % (94.0-98.0); MODE VENT - prvc; PATIENT TEMPERATURE 35.9; PEEP 8 cm H2O; RESPIRATORY RATE 20 b/min; TIDAL VOLUME 475 mL; TOTAL HEMOGLOBIN 16.6 G/dl (13.5-17.5)
[2024-04-13] MEDS: thiamine 100mg/ml 2ml inj. IV SCH (20:27)
[2024-04-13] MEDS: dexamethasone sod phosphate 10mg/ml inj IV SCH (20:27)
[2024-04-14] VITALS (35 sets, daily range): BP systolic 109–162; BP diastolic 61–92; PULSE 72–103; RESP 19–23; O2SAT 95–100
[2024-04-14] MEDS: heparin, porcine 5000 units/ml vial SQ SCH (00:44)
[2024-04-14 02:27] LABS: INR 1.1 INR; PROTHROMBIN TIME 11.4 SECONDS (9.0-12.0)
[2024-04-14 02:30] LABS: BASOPHILS # (AUTO) 0.1 X10'3 (0-0.2); BASOPHILS % (AUTO) 0.8 % (0-1); EOSINOPHILS % (AUTO) 0 % (0-6); HEMATOCRIT 45.9 % (42.0-52.0); HEMOGLOBIN 14.9 g/dl (14.0-17.9); LYMPHOCYTES # (AUTO) 0.3 X10'3 (1.1-4.8); LYMPHOCYTES % (AUTO) 3.8 % (21-51); MEAN CORPUSCULAR HEMOGLOBIN 29.7 PG (27.0-31.0); MEAN CORPUSCULAR HGB CONC 32.5 g/dL (33.0-36.5); MEAN CORPUSCULAR VOLUME 91.4 FL (78-98); MEAN PLATELET VOLUME 8.4 FL (7.4-10.4); MONOCYTES # (AUTO) 0.2 X10'3 (0-0.9); MONOCYTES % (AUTO) 2.7 % (2-12); NEUTROPHILS # (AUTO) 8.6 X10'3 (1.8-7.7); NEUTROPHILS % (AUTO) 92.7 % (42-75); PLATELET COUNT 222 X10'3 (140-440); RED BLOOD COUNT 5.02 X10'6 (4.70-6.10); RED CELL DISTRIBUTION WIDTH 16.5 % (11.5-14.5); WHITE BLOOD COUNT 9.2 X10'3 (4.5-11.0)
[2024-04-14 02:34] LABS: ALANINE AMINOTRANSFERASE 83 U/L (12-78); ALBUMIN 2.9 G/DL (3.4-5.0); ALBUMIN/GLOBULIN RATIO 0.7 (1.1-1.5); ALKALINE PHOSPHATASE 116 IU/L (46-116); AMYLASE 17 U/L (25-115); ANION GAP 8 (8-16); ASPARTATE AMINO TRANSFERASE 80 U/L (10-37); BILIRUBIN,TOTAL 0.6 MG/DL (0.1-1.0); BLOOD UREA NITROGEN 3 MG/DL (7-18); BUN/CREATININE RATIO 4.3 (10.0-20.0); CALCIUM 7.3 MG/DL (8.5-10.1); CHLORIDE 102 MMOL/L (99-107); CREATININE 0.69 MG/DL (0.60-1.10); GLUCOSE 129 MG/DL (70-104); LIPASE 14 U/L (16-77); MAGNESIUM 1.9 MG/DL (1.5-2.4); PHOSPHORUS 2.6 MG/DL (2.3-4.5); POTASSIUM 4.4 MMOL/L (3.5-5.1); SODIUM 140 MMOL/L (135-145); eCRCL 108 ML/MIN; eGFR > 90 ML/MIN
[2024-04-14 03:33] LABS: ABG BASE EXCESS 2.7 mmol/L (-2.0-3.0); ABG HCO3 30.4 mmol/L (21.0-28.0); ABG OXYGEN SATURATION 94.3 % (94.0-98.0); ABG PCO2 (T) 59.7 mmHg (35.0-48.0); ABG PH (T) 7.327 (7.350-7.450); ABG PO2 (T) 77.8 mmHg (83.0-108.0); ALLEN'S TEST POSITIVE; FCOHb 0.8 % (0.5-1.5); FHHb 5.6 % (0.0-5.0); FMetHb 0.1 % (0.0-1.5); FO2Hb 93.5 % (94.0-98.0); MODE VENT - prvc; PATIENT TEMPERATURE 37.3; PEEP 8 cm H2O; RESPIRATORY RATE 20 b/min; TIDAL VOLUME 475 mL; TOTAL HEMOGLOBIN 15.9 G/dl (13.5-17.5)
[2024-04-14 13:25] LABS: ABG BASE EXCESS 4.1 mmol/L (-2.0-3.0); ABG HCO3 28.8 mmol/L (21.0-28.0); ABG OXYGEN SATURATION 94.1 % (94.0-98.0); ABG PCO2 (T) 44.2 mmHg (35.0-48.0); ABG PH (T) 7.435 (7.350-7.450); ABG PO2 (T) 71.1 mmHg (83.0-108.0); ALLEN'S TEST POSITIVE; FCOHb 0.6 % (0.5-1.5); FHHb 5.9 % (0.0-5.0); FMetHb 0.1 % (0.0-1.5); FO2Hb 93.4 % (94.0-98.0); MODE VENT - APRV; PATIENT TEMPERATURE 37.5; PEEP 8 cm H2O; RESPIRATORY RATE 20 b/min; TIDAL VOLUME 550 mL; TOTAL HEMOGLOBIN 15.5 G/dl (13.5-17.5)
[2024-04-14] MEDS ORDERED: magnesium hydroxide 30ml (MOM) UD suspension NG PRN (13:48)
[2024-04-14] MEDS: COMMUNICATION ORDER 1 EA MISC MC ONE (16:35)
[2024-04-14] MEDS: midazolam 100mg in NS 100ml 100 ML IV SCH (17:02)
[2024-04-14] MEDS: mineral oil/petrolatum ophthal oint EACHEYE SCH (20:14)
[2024-04-15] VITALS (39 sets, daily range): BP systolic 97–152; BP diastolic 54–86; PULSE 56–91; RESP 19–22; O2SAT 94–100
[2024-04-15 01:33] LABS: BASOPHILS % (AUTO) 0.3 % (0-1); EOSINOPHILS % (AUTO) 0 % (0-6); HEMATOCRIT 44.5 % (42.0-52.0); HEMOGLOBIN 14.3 g/dl (14.0-17.9); LYMPHOCYTES # (AUTO) 0.5 X10'3 (1.1-4.8); LYMPHOCYTES % (AUTO) 5.7 % (21-51); MEAN CORPUSCULAR HEMOGLOBIN 29.1 PG (27.0-31.0); MEAN CORPUSCULAR HGB CONC 32.2 g/dL (33.0-36.5); MEAN CORPUSCULAR VOLUME 90.5 FL (78-98); MEAN PLATELET VOLUME 8.8 FL (7.4-10.4); MONOCYTES # (AUTO) 0.3 X10'3 (0-0.9); MONOCYTES % (AUTO) 3.8 % (2-12); NEUTROPHILS # (AUTO) 7.2 X10'3 (1.8-7.7); NEUTROPHILS % (AUTO) 90.2 % (42-75); PLATELET COUNT 190 X10'3 (140-440); RED BLOOD COUNT 4.92 X10'6 (4.70-6.10); RED CELL DISTRIBUTION WIDTH 16.2 % (11.5-14.5)
[2024-04-15 01:49] LABS: ALANINE AMINOTRANSFERASE 63 U/L (12-78); ALBUMIN 2.7 G/DL (3.4-5.0); ALBUMIN/GLOBULIN RATIO 0.8 (1.1-1.5); ALKALINE PHOSPHATASE 103 IU/L (46-116); AMYLASE 14 U/L (25-115); ANION GAP 7 (8-16); ASPARTATE AMINO TRANSFERASE 60 U/L (10-37); BILIRUBIN,TOTAL 0.9 MG/DL (0.1-1.0); BLOOD UREA NITROGEN 6 MG/DL (7-18); BUN/CREATININE RATIO 10.3 (10.0-20.0); CHLORIDE 102 MMOL/L (99-107); CREATININE 0.58 MG/DL (0.60-1.10); GLUCOSE 167 MG/DL (70-104); LIPASE 15 U/L (16-77); PHOSPHORUS 1.6 MG/DL (2.3-4.5); POTASSIUM 3.8 MMOL/L (3.5-5.1); SODIUM 138 MMOL/L (135-145); TOTAL PROTEIN 6.2 G/DL (6.4-8.2); eCRCL 129 ML/MIN; eGFR > 90 ML/MIN
[2024-04-15 02:16] LABS: PROTHROMBIN TIME 10.4 SECONDS (9.0-12.0)
[2024-04-15 03:33] LABS: ABG BASE EXCESS 4.9 mmol/L (-2.0-3.0); ABG HCO3 31.1 mmol/L (21.0-28.0); ABG OXYGEN SATURATION 99.7 % (94.0-98.0); ABG PCO2 (T) 50.2 mmHg (35.0-48.0); ABG PH (T) 7.407 (7.350-7.450); ALLEN'S TEST POSITIVE; FCOHb 0.3 % (0.5-1.5); FHHb 0.3 % (0.0-5.0); FMetHb 0.1 % (0.0-1.5); FO2Hb 99.3 % (94.0-98.0); MODE VENT - prvc; PATIENT TEMPERATURE 36.5; PEEP 8 cm H2O; RESPIRATORY RATE 20 b/min; TIDAL VOLUME 550 mL; TOTAL HEMOGLOBIN 15.3 G/dl (13.5-17.5)
[2024-04-15] MEDS ORDERED: glucagon, human recombinant 1mg kit SUBCUT PRN (08:30)
[2024-04-15] MEDS ORDERED: Dextrose 10%-water IV solution 1,000 ML IV SCH (08:30)
[2024-04-15] MEDS ORDERED: DEXTROSE 15 GM of carb/4 tabs (each vial/BOTTLE has 4 tablets) PO PRN ×2 (08:30)
[2024-04-15] MEDS ORDERED: Neutra Phos packet PO PRN (08:55)
[2024-04-15] MEDS ORDERED: magnesium sulf-water 4G/100mL 100 ML IV PRN (08:55)
[2024-04-15] MEDS ORDERED: magnesium sulf-water 2g/50mL 50 ML IV PRN (08:55)
[2024-04-15] MEDS ORDERED: potassium Cl 20 mEq SR tablet PO PRN ×2 (08:55)
[2024-04-15] MEDS ORDERED: sodium phosphate inj. 30 MMOL in dextrose 5%-water 250 ML IV PRN (08:55)
[2024-04-15] MEDS ORDERED: Neutra Phos packet NG PRN (11:11)
[2024-04-15] MEDS ORDERED: POTASSIUM CHLORIDE 20 MEQ/15 ML oral solution NG PRN (11:11)
[2024-04-15] MEDS ORDERED: DEXTROSE 15 GM of carb/4 tabs (each vial/BOTTLE has 4 tablets) NG PRN ×2 (11:11)
[2024-04-15] MEDS: fentaNYL 2,500 MCG in Normal Saline 250ml IV soln bag IV SCH (13:07)
[2024-04-15] MEDS ORDERED: UNABLE TO OBTAIN (15:12)
[2024-04-15 15:14] LABS: ABG BASE EXCESS 3.4 mmol/L (-2.0-3.0); ABG HCO3 26.6 mmol/L (21.0-28.0); ABG OXYGEN SATURATION 95.9 % (94.0-98.0); ABG PCO2 (T) 35.8 mmHg (35.0-48.0); ABG PH (T) 7.488 (7.350-7.450); ALLEN'S TEST POSITIVE; FCOHb 0.7 % (0.5-1.5); FHHb 4.1 % (0.0-5.0); FMetHb 0.3 % (0.0-1.5); FO2Hb 94.9 % (94.0-98.0); MODE VENT - AC; PATIENT TEMPERATURE 36.8; PEEP 8 cm H2O; RESPIRATORY RATE 20 b/min; TIDAL VOLUME 550 mL; TOTAL HEMOGLOBIN 15.3 G/dl (13.5-17.5)
[2024-04-15] MEDS: insulin regular, human U-100 10ml vial - multi-dose SQ SCH (15:18)
[2024-04-15] MEDS ORDERED: NO HOME MEDS (15:23)
[2024-04-16] VITALS (49 sets, daily range): BP systolic 104–176; BP diastolic 62–101; PULSE 61–109; RESP 12–22; O2SAT 93–99
[2024-04-16 02:51] LABS: BASOPHILS % (AUTO) 0.1 % (0-1); EOSINOPHILS % (AUTO) 0 % (0-6); HEMATOCRIT 45.5 % (42.0-52.0); HEMOGLOBIN 14.6 g/dl (14.0-17.9); LYMPHOCYTES # (AUTO) 0.6 X10'3 (1.1-4.8); MEAN CORPUSCULAR HEMOGLOBIN 28.8 PG (27.0-31.0); MEAN CORPUSCULAR VOLUME 90.1 FL (78-98); MONOCYTES # (AUTO) 0.4 X10'3 (0-0.9); MONOCYTES % (AUTO) 3.3 % (2-12); NEUTROPHILS # (AUTO) 10.8 X10'3 (1.8-7.7); NEUTROPHILS % (AUTO) 91.6 % (42-75); PLATELET COUNT 186 X10'3 (140-440); RED BLOOD COUNT 5.05 X10'6 (4.70-6.10); RED CELL DISTRIBUTION WIDTH 16.5 % (11.5-14.5); WHITE BLOOD COUNT 11.8 X10'3 (4.5-11.0)
[2024-04-16 03:17] LABS: ANION GAP 4 (8-16); CHLORIDE 105 MMOL/L (99-107); POTASSIUM 3.7 MMOL/L (3.5-5.1); SODIUM 140 MMOL/L (135-145); TOTAL CARBON DIOXIDE 30.8 MMOL/L (24-32)
[2024-04-16 03:41] LABS: PROTHROMBIN TIME 10.4 SECONDS (9.0-12.0)
[2024-04-16 03:45] LABS: ALANINE AMINOTRANSFERASE 53 U/L (12-78); ALBUMIN 2.7 G/DL (3.4-5.0); ALBUMIN/GLOBULIN RATIO 0.8 (1.1-1.5); ALKALINE PHOSPHATASE 98 IU/L (46-116); AMYLASE 13 U/L (25-115); ASPARTATE AMINO TRANSFERASE 52 U/L (10-37); BILIRUBIN,TOTAL 0.6 MG/DL (0.1-1.0); BLOOD UREA NITROGEN 9 MG/DL (7-18); BUN/CREATININE RATIO 14.5 (10.0-20.0); CALCIUM 8.4 MG/DL (8.5-10.1); CREATININE 0.62 MG/DL (0.60-1.10); GLUCOSE 197 MG/DL (70-104); LIPASE 16 U/L (16-77); MAGNESIUM 2.3 MG/DL (1.5-2.4); PHOSPHORUS 1.6 MG/DL (2.3-4.5); TOTAL PROTEIN 6.2 G/DL (6.4-8.2); eCRCL 120 ML/MIN; eGFR > 90 ML/MIN
[2024-04-16 04:01] LABS: ABG BASE EXCESS 6.3 mmol/L (-2.0-3.0); ABG HCO3 28.3 mmol/L (21.0-28.0); ABG OXYGEN SATURATION 96.6 % (94.0-98.0); ABG PH (T) 7.551 (7.350-7.450); ABG PO2 (T) 76.7 mmHg (83.0-108.0); ALLEN'S TEST Modified; FCOHb 0.4 % (0.5-1.5); FHHb 3.4 % (0.0-5.0); FO2Hb 96.2 % (94.0-98.0); MODE PRVC; PEEP 8 cm H2O; RESPIRATORY RATE 20 b/min; TIDAL VOLUME 550 mL; TOTAL HEMOGLOBIN 15.8 G/dl (13.5-17.5)
[2024-04-16] MEDS: sodium phosphate inj. 15 MMOL in dextrose 5%-water 250 ML IV PRN (04:58)
[2024-04-16] MEDS: fentaNYL 2,500 MCG in Normal Saline 250ml IV soln bag IV SCH (06:39)
[2024-04-16] MEDS: MVI, adult No.4 with vit. K 10 ML in dextrose 5% water 500ml 500 ML IV SCH (08:07)
[2024-04-16] MEDS: furosemide 40mg/4ml inj IV ONE (10:38)
[2024-04-16] MEDS: furosemide 20 MG/2 ML vial IV SCH (13:26)
[2024-04-16 15:58] LABS: ABG BASE EXCESS 7.5 mmol/L (-2.0-3.0); ABG HCO3 31.6 mmol/L (21.0-28.0); ABG OXYGEN SATURATION 93.4 % (94.0-98.0); ABG PCO2 (T) 40.5 mmHg (35.0-48.0); ABG PH (T) 7.507 (7.350-7.450); ABG PO2 (T) 60.5 mmHg (83.0-108.0); ALLEN'S TEST POSITIVE; FCOHb 0.8 % (0.5-1.5); FHHb 6.5 % (0.0-5.0); FMetHb 0.1 % (0.0-1.5); FO2Hb 92.6 % (94.0-98.0); MODE VENT - PRVC; PATIENT TEMPERATURE 36.2; PEEP 8 cm H2O; RESPIRATORY RATE 16 b/min; TIDAL VOLUME 500 mL; TOTAL HEMOGLOBIN 16.6 G/dl (13.5-17.5)
[2024-04-17] VITALS (45 sets, daily range): BP systolic 99–158; BP diastolic 60–95; PULSE 76–140; RESP 16–20; O2SAT 89–98
[2024-04-17] MEDS: acetaminophen 325mg tablet NG PRN (01:28)
[2024-04-17 02:49] LABS: BASOPHILS % (AUTO) 0.1 % (0-1); EOSINOPHILS % (AUTO) 0.1 % (0-6); HEMATOCRIT 49.7 % (42.0-52.0); HEMOGLOBIN 16.2 g/dl (14.0-17.9); LYMPHOCYTES # (AUTO) 0.6 X10'3 (1.1-4.8); LYMPHOCYTES % (AUTO) 4.5 % (21-51); MEAN CORPUSCULAR HEMOGLOBIN 29.3 PG (27.0-31.0); MEAN CORPUSCULAR HGB CONC 32.7 g/dL (33.0-36.5); MEAN CORPUSCULAR VOLUME 89.7 FL (78-98); MEAN PLATELET VOLUME 8.7 FL (7.4-10.4); MONOCYTES # (AUTO) 0.1 X10'3 (0-0.9); NEUTROPHILS # (AUTO) 11.8 X10'3 (1.8-7.7); NEUTROPHILS % (AUTO) 94.3 % (42-75); PLATELET COUNT 147 X10'3 (140-440); RED BLOOD COUNT 5.54 X10'6 (4.70-6.10); RED CELL DISTRIBUTION WIDTH 16.3 % (11.5-14.5); WHITE BLOOD COUNT 12.5 X10'3 (4.5-11.0)
[2024-04-17 02:58] LABS: PROTHROMBIN TIME 10.4 SECONDS (9.0-12.0)
[2024-04-17 03:01] LABS: ALANINE AMINOTRANSFERASE 73 U/L (12-78); ALBUMIN 2.8 G/DL (3.4-5.0); ALBUMIN/GLOBULIN RATIO 0.8 (1.1-1.5); ALKALINE PHOSPHATASE 139 IU/L (46-116); AMYLASE 16 U/L (25-115); ANION GAP 7 (8-16); ASPARTATE AMINO TRANSFERASE 90 U/L (10-37); BILIRUBIN,TOTAL 1.1 MG/DL (0.1-1.0); BLOOD UREA NITROGEN 10 MG/DL (7-18); BUN/CREATININE RATIO 13.3 (10.0-20.0); CALCIUM 7.9 MG/DL (8.5-10.1); CHLORIDE 102 MMOL/L (99-107); CREATININE 0.75 MG/DL (0.60-1.10); GLUCOSE 121 MG/DL (70-104); LIPASE 16 U/L (16-77); MAGNESIUM 1.6 MG/DL (1.5-2.4); PHOSPHORUS 3.9 MG/DL (2.3-4.5); SODIUM 143 MMOL/L (135-145); TOTAL CARBON DIOXIDE 33.7 MMOL/L (24-32); TOTAL PROTEIN 6.5 G/DL (6.4-8.2); eCRCL 100 ML/MIN; eGFR > 90 ML/MIN
[2024-04-17 03:12] LABS: POTASSIUM 2.9 MMOL/L (3.5-5.1)
[2024-04-17 03:39] LABS: ABG BASE EXCESS 6.8 mmol/L (-2.0-3.0); ABG HCO3 33.8 mmol/L (21.0-28.0); ABG OXYGEN SATURATION 94.5 % (94.0-98.0); ABG PCO2 (T) 58.4 mmHg (35.0-48.0); ABG PH (T) 7.385 (7.350-7.450); ABG PO2 (T) 79.3 mmHg (83.0-108.0); ALLEN'S TEST Modified; FCOHb 0.6 % (0.5-1.5); FHHb 5.5 % (0.0-5.0); FMetHb 0.2 % (0.0-1.5); FO2Hb 93.7 % (94.0-98.0); MODE PRVC; PATIENT TEMPERATURE 37.9; PEEP 8 cm H2O; RESPIRATORY RATE 16 b/min; TIDAL VOLUME 500 mL; TOTAL HEMOGLOBIN 17.3 G/dl (13.5-17.5)
[2024-04-17] MEDS: potassium Cl 40MEQ/270ML bag 270 ML IV PRN (03:43)
[2024-04-17 11:48] LABS: POTASSIUM 3.5 MMOL/L (3.5-5.1)
[2024-04-17] MEDS: magnesium sulf-water 2g/50mL 50 ML IV ONE (12:26)
[2024-04-17] MEDS: levoFLOXACIN-Levaquin 750MG/D5 150 ML IV STA (12:38)
[2024-04-17] MEDS: CefTRIAXone/D5W-Rocephin 1gm 50 ML IV STA (13:52)
[2024-04-17] MEDS: POTASSIUM CHLORIDE 20 MEQ/15 ML oral solution PO SCH (13:57)
[2024-04-17] MEDS: MIDAZolam 5mg/ml 2ml vial IV ONE (14:01)
[2024-04-17 17:15] LABS: ABG BASE EXCESS 4.9 mmol/L (-2.0-3.0); ABG HCO3 32.4 mmol/L (21.0-28.0); ABG OXYGEN SATURATION 90.4 % (94.0-98.0); ABG PCO2 (T) 62.1 mmHg (35.0-48.0); ABG PH (T) 7.342 (7.350-7.450); ABG PO2 (T) 67.8 mmHg (83.0-108.0); ALLEN'S TEST POSITIVE; FCOHb 0.5 % (0.5-1.5); FHHb 9.5 % (0.0-5.0); FMetHb 0.1 % (0.0-1.5); FO2Hb 89.9 % (94.0-98.0); MODE VENT - PRVC; PATIENT TEMPERATURE 38.5; PEEP 8 cm H2O; RESPIRATORY RATE 16 b/min; TIDAL VOLUME 500 mL; TOTAL HEMOGLOBIN 17.5 G/dl (13.5-17.5)
[2024-04-17 19:20] LABS: BILIRUBIN,URINE MODERATE (Neg); CLARITY,URINE CLOUDY (Clear); COLOR,URINE AMBER (Yellow); GLUCOSE, URINE NEGATIVE (Neg); KETONES,URINE NEGATIVE (Neg); LEUKOCYTE ESTERASE ,URINE NEGATIVE (Neg); OCCULT BLOOD,URINE LARGE (Neg); PH,URINE 5.5 (4.8-8.0); PROTEIN,URINE 100 mg/dl (Neg)
[2024-04-17 19:30] LABS: UA COLLECTION TYPE FOLEY CATH
[2024-04-17 19:37] LABS: NITRITES, URINE NEGATIVE (Neg)
[2024-04-17 19:38] LABS: AMORPHOUS URATES 2+; BACTERIA,URINE 2+ /HPF (Neg); HYALINE CASTS 0-3 /LPF (NEGATIVE); RBC,URINE 50-100 /HPF (0-2); SQUAMOUS EPITHELIAL CELL,UR MODERATE /LPF (FEW); WBC,URINE 0-4 /HPF (0-4)
[2024-04-17] MEDS: fentaNYL 50mcg/ml PF inj. 2,500 MCG in normal saline 250ml IV soln 200 ML IV SCH (21:38)
[2024-04-17] MEDS: dexmedetomidin/NS 400mcg/100ml 100 ML IV SCH (21:57)
[2024-04-17] MEDS: midazolam 100mg in NS 100ml 100 ML IV SCH (22:05)
[2024-04-17] MEDS: midazolam 1 mg/ML 2ml injection ONE (22:23)
[2024-04-18] VITALS (43 sets, daily range): BP systolic 97–169; BP diastolic 64–96; PULSE 97–115; RESP 15–17; O2SAT 91–99
[2024-04-18] MEDS: phenobarbital inj 260 MG in normal saline 100ml IV soln IV ONE (00:19)
[2024-04-18 02:37] LABS: BASOPHILS % (AUTO) 0.1 % (0-1); EOSINOPHILS # (AUTO) 0.1 X10'3 (0-0.9); EOSINOPHILS % (AUTO) 0.4 % (0-6); HEMATOCRIT 46.9 % (42.0-52.0); HEMOGLOBIN 15.1 g/dl (14.0-17.9); LYMPHOCYTES # (AUTO) 0.5 X10'3 (1.1-4.8); LYMPHOCYTES % (AUTO) 3.8 % (21-51); MEAN CORPUSCULAR HEMOGLOBIN 29.3 PG (27.0-31.0); MEAN CORPUSCULAR HGB CONC 32.2 g/dL (33.0-36.5); MEAN PLATELET VOLUME 8.7 FL (7.4-10.4); MONOCYTES # (AUTO) 0.4 X10'3 (0-0.9); NEUTROPHILS # (AUTO) 12.7 X10'3 (1.8-7.7); NEUTROPHILS % (AUTO) 92.7 % (42-75); RED BLOOD COUNT 5.16 X10'6 (4.70-6.10); RED CELL DISTRIBUTION WIDTH 16.7 % (11.5-14.5); WHITE BLOOD COUNT 13.7 X10'3 (4.5-11.0)
[2024-04-18 02:42] LABS: INR 1.1 INR; PROTHROMBIN TIME 11.3 SECONDS (9.0-12.0)
[2024-04-18 02:46] LABS: ALANINE AMINOTRANSFERASE 85 U/L (12-78); ALBUMIN 2.1 G/DL (3.4-5.0); ALBUMIN/GLOBULIN RATIO 0.6 (1.1-1.5); ALKALINE PHOSPHATASE 92 IU/L (46-116); AMYLASE 12 U/L (25-115); ANION GAP 2 (8-16); ASPARTATE AMINO TRANSFERASE 88 U/L (10-37); BILIRUBIN,TOTAL 1.1 MG/DL (0.1-1.0); BLOOD UREA NITROGEN 19 MG/DL (7-18); BUN/CREATININE RATIO 19.6 (10.0-20.0); CALCIUM 7.7 MG/DL (8.5-10.1); CHLORIDE 102 MMOL/L (99-107); CREATININE 0.97 MG/DL (0.60-1.10); GLUCOSE 179 MG/DL (70-104); LIPASE 12 U/L (16-77); MAGNESIUM 1.9 MG/DL (1.5-2.4); PHOSPHORUS 3.6 MG/DL (2.3-4.5); POTASSIUM 4.1 MMOL/L (3.5-5.1); SODIUM 137 MMOL/L (135-145); TOTAL CARBON DIOXIDE 32.8 MMOL/L (24-32); TOTAL PROTEIN 5.9 G/DL (6.4-8.2); eCRCL 77 ML/MIN; eGFR 78 ML/MIN
[2024-04-18 03:38] LABS: ABG BASE EXCESS 1.1 mmol/L (-2.0-3.0); ABG HCO3 26.9 mmol/L (21.0-28.0); ABG PCO2 (T) 48.2 mmHg (35.0-48.0); ABG PH (T) 7.368 (7.350-7.450); ABG PO2 (T) 131.9 mmHg (83.0-108.0); ALLEN'S TEST Modified; FCOHb 1.1 % (0.5-1.5); FMetHb 0.2 % (0.0-1.5); FO2Hb 97.7 % (94.0-98.0); MODE prvc; PATIENT TEMPERATURE 37.7; PEEP 10 cm H2O; RESPIRATORY RATE 16 b/min; TIDAL VOLUME 500 mL
[2024-04-18 03:53] LABS: PLATELET COUNT 81 X10'3 (140-440)
[2024-04-18] MEDS: phenoBARBITAL sod 130mg/ml inj. IV PRN (04:30)
[2024-04-18] MEDS: CefTRIAXone/D5W-Rocephin 1gm 50 ML IV SCH (08:00)
[2024-04-18] MEDS: levoFLOXACIN-Levaquin 750MG/D5 150 ML IV SCH (08:00)
[2024-04-18] MEDS: fondaparinux 2.5 MG/0.5 ML syringe SUBCUT SCH (11:28)
[2024-04-18] MEDS: furosemide 20 MG/2 ML vial IV SCH (13:14)
[2024-04-18 18:44] LABS: ABG BASE EXCESS 1.8 mmol/L (-2.0-3.0); ABG HCO3 28.8 mmol/L (21.0-28.0); ABG OXYGEN SATURATION 95.1 % (94.0-98.0); ABG PCO2 (T) 54.6 mmHg (35.0-48.0); ABG PH (T) 7.341 (7.350-7.450); ABG PO2 (T) 79.4 mmHg (83.0-108.0); ALLEN'S TEST Modified; FHHb 4.8 % (0.0-5.0); FMetHb 0.1 % (0.0-1.5); FO2Hb 94.1 % (94.0-98.0); MODE prvc; PATIENT TEMPERATURE 37.3; PEEP 10 cm H2O; RESPIRATORY RATE 16 b/min; TIDAL VOLUME 500 mL; TOTAL HEMOGLOBIN 15.9 G/dl (13.5-17.5)
[2024-04-19] VITALS (44 sets, daily range): BP systolic 103–160; BP diastolic 57–85; PULSE 1–101; RESP 14–18; O2SAT 91–99
[2024-04-19 02:14] LABS: BASOPHILS % (AUTO) 0.1 % (0-1); EOSINOPHILS # (AUTO) 0.2 X10'3 (0-0.9); HEMATOCRIT 40.5 % (42.0-52.0); HEMOGLOBIN 12.9 g/dl (14.0-17.9); LYMPHOCYTES # (AUTO) 0.9 X10'3 (1.1-4.8); MEAN CORPUSCULAR HEMOGLOBIN 29.8 PG (27.0-31.0); MEAN CORPUSCULAR HGB CONC 31.8 g/dL (33.0-36.5); MEAN CORPUSCULAR VOLUME 93.5 FL (78-98); MEAN PLATELET VOLUME 9.8 FL (7.4-10.4); MONOCYTES # (AUTO) 0.8 X10'3 (0-0.9); MONOCYTES % (AUTO) 8.2 % (2-12); NEUTROPHILS # (AUTO) 7.6 X10'3 (1.8-7.7); NEUTROPHILS % (AUTO) 80.7 % (42-75); PLATELET COUNT 58 X10'3 (140-440); RED BLOOD COUNT 4.33 X10'6 (4.70-6.10); RED CELL DISTRIBUTION WIDTH 17.1 % (11.5-14.5); WHITE BLOOD COUNT 9.5 X10'3 (4.5-11.0)
[2024-04-19 02:29] LABS: ALANINE AMINOTRANSFERASE 56 U/L (12-78); ALBUMIN 1.2 G/DL (3.4-5.0); ALBUMIN/GLOBULIN RATIO 0.4 (1.1-1.5); ALKALINE PHOSPHATASE 59 IU/L (46-116); ANION GAP 4 (8-16); ASPARTATE AMINO TRANSFERASE 75 U/L (10-37); BILIRUBIN,TOTAL 0.6 MG/DL (0.1-1.0); BLOOD UREA NITROGEN 12 MG/DL (7-18); CALCIUM 6.3 MG/DL (8.5-10.1); CHLORIDE 111 MMOL/L (99-107); CREATININE 0.48 MG/DL (0.60-1.10); GLUCOSE 109 MG/DL (70-104); SODIUM 142 MMOL/L (135-145); TOTAL CARBON DIOXIDE 27.1 MMOL/L (24-32); TOTAL PROTEIN 4.3 G/DL (6.4-8.2); eCRCL 155 ML/MIN; eGFR > 90 ML/MIN
[2024-04-19 03:17] LABS: PLATELET ESTIMATE DECREASED; POLYCHROMASIA FEW
[2024-04-19 03:18] LABS: ANISOCYTOSIS 1+; ELLIPTOCYTES FEW
[2024-04-19] MEDS: POTASSIUM CHLORIDE 20 MEQ/15 ML oral solution NG PRN (03:23)
[2024-04-19 03:30] LABS: ABG BASE EXCESS 5.3 mmol/L (-2.0-3.0); ABG HCO3 32.2 mmol/L (21.0-28.0); ABG OXYGEN SATURATION 93.1 % (94.0-98.0); ABG PCO2 (T) 56.8 mmHg (35.0-48.0); ABG PH (T) 7.373 (7.350-7.450); ABG PO2 (T) 64.3 mmHg (83.0-108.0); ALLEN'S TEST Modified; FCOHb 1.2 % (0.5-1.5); FHHb 6.8 % (0.0-5.0); MODE PRVC; PATIENT TEMPERATURE 37.4; PEEP 10 cm H2O; RESPIRATORY RATE 16 b/min; TIDAL VOLUME 500 mL; TOTAL HEMOGLOBIN 15.3 G/dl (13.5-17.5)
[2024-04-19] MEDS: albumin (human) 25% 100ml IV 400 ML IV ONE (11:03)
[2024-04-19] MEDS: gelatin sponge, absorbable (Gelfoam 12-7MM) sponge TP ONE (11:15)
[2024-04-19] MEDS ORDERED: albumin (Human) 5% 250ml 250 ML IV SCH (11:44)
[2024-04-19] MEDS: albumin (Human) 5% 250ml 250 ML IV SCH (12:09)
[2024-04-19] MEDS: vancomycin/NS 1 GM ADD-VANTAGE 250 ML IV SCH (12:30)
[2024-04-19] MEDS ORDERED: metolazone 2.5mg tablet PO SCH (20:30)
[2024-04-19] MEDS: POTASSIUM CHLORIDE 20 MEQ/15 ML oral solution NG SCH (20:34)
[2024-04-19] MEDS: metolazone 2.5mg tablet PO ONE (20:49)
[2024-04-19] MEDS: docusate sodium 100mg/10ml UD cup PO ONE (20:50)
[2024-04-19 21:09] LABS: ABG HCO3 31.1 mmol/L (21.0-28.0); ABG OXYGEN SATURATION 96.1 % (94.0-98.0); ABG PCO2 (T) 52.3 mmHg (35.0-48.0); ABG PH (T) 7.394 (7.350-7.450); ABG PO2 (T) 82.4 mmHg (83.0-108.0); ALLEN'S TEST Modified; FCOHb 1.2 % (0.5-1.5); FHHb 3.8 % (0.0-5.0); FMetHb 0.3 % (0.0-1.5); FO2Hb 94.7 % (94.0-98.0); MODE prvc; PATIENT TEMPERATURE 37.4; PEEP 10 cm H2O; RESPIRATORY RATE 16 b/min; TIDAL VOLUME 500 mL; TOTAL HEMOGLOBIN 14.6 G/dl (13.5-17.5)
[2024-04-20] VITALS (47 sets, daily range): BP systolic 118–173; BP diastolic 64–103; PULSE 80–106; RESP 16–20; O2SAT 92–96
[2024-04-20] MEDS: erythromycin ethylsuccinate 200mg/5mL ORAL suspension PO SCH (00:07)
[2024-04-20 02:20] LABS: BASOPHILS % (AUTO) 0.2 % (0-1); EOSINOPHILS # (AUTO) 0.2 X10'3 (0-0.9); EOSINOPHILS % (AUTO) 2.9 % (0-6); HEMATOCRIT 41.2 % (42.0-52.0); HEMOGLOBIN 13.2 g/dl (14.0-17.9); LYMPHOCYTES # (AUTO) 0.6 X10'3 (1.1-4.8); LYMPHOCYTES % (AUTO) 9.5 % (21-51); MEAN CORPUSCULAR HEMOGLOBIN 29.1 PG (27.0-31.0); MONOCYTES # (AUTO) 0.7 X10'3 (0-0.9); MONOCYTES % (AUTO) 10.1 % (2-12); NEUTROPHILS # (AUTO) 5.3 X10'3 (1.8-7.7); NEUTROPHILS % (AUTO) 77.3 % (42-75); RED BLOOD COUNT 4.52 X10'6 (4.70-6.10); RED CELL DISTRIBUTION WIDTH 16.6 % (11.5-14.5); WHITE BLOOD COUNT 6.8 X10'3 (4.5-11.0)
[2024-04-20 03:08] LABS: ABG BASE EXCESS 4.1 mmol/L (-2.0-3.0); ABG HCO3 30.7 mmol/L (21.0-28.0); ABG OXYGEN SATURATION 94.6 % (94.0-98.0); ABG PCO2 (T) 54.1 mmHg (35.0-48.0); ABG PH (T) 7.373 (7.350-7.450); ALLEN'S TEST Modified; FCOHb 1.3 % (0.5-1.5); FHHb 5.3 % (0.0-5.0); FMetHb 0.3 % (0.0-1.5); FO2Hb 93.1 % (94.0-98.0); MODE prvc; PATIENT TEMPERATURE 37.1; PEEP 10 cm H2O; RESPIRATORY RATE 16 b/min; TIDAL VOLUME 500 mL; TOTAL HEMOGLOBIN 14.9 G/dl (13.5-17.5)
[2024-04-20 03:51] LABS: ALBUMIN 2.7 G/DL (3.4-5.0); ALBUMIN/GLOBULIN RATIO 0.7 (1.1-1.5); CALCIUM 8.8 MG/DL (8.5-10.1); CHLORIDE 99 MMOL/L (99-107); GLUCOSE 147 MG/DL (70-104); PHOSPHORUS 2.9 MG/DL (2.3-4.5); POTASSIUM 3.8 MMOL/L (3.5-5.1); TOTAL PROTEIN 6.5 G/DL (6.4-8.2); eCRCL 115 ML/MIN; eGFR > 90 ML/MIN
[2024-04-20 03:52] LABS: ANISOCYTOSIS 1+; NUCLEATED RED BLOOD CELLS 1 /100WBC (0-0); STOMATOCYTES FEW; TOTAL CELLS COUNTED 100
[2024-04-20 04:04] LABS: ANION GAP 7 (8-16); BLOOD UREA NITROGEN 14 MG/DL (7-18); SODIUM 137 MMOL/L (135-145); TOTAL CARBON DIOXIDE 31.2 MMOL/L (24-32)
[2024-04-20 04:05] LABS: ASPARTATE AMINO TRANSFERASE 143 U/L (10-37); BUN/CREATININE RATIO 21.5 (10.0-20.0); CREATININE 0.65 MG/DL (0.60-1.10); MAGNESIUM 2.1 MG/DL (1.5-2.4)
[2024-04-20 04:06] LABS: ALANINE AMINOTRANSFERASE 112 U/L (12-78); ALKALINE PHOSPHATASE 86 IU/L (46-116); PREALBUMIN 12.6 MG/DL (19-36)
[2024-04-20 04:44] LABS: BASOPHILS % (AUTO) 0.2 % (0-1); EOSINOPHILS # (AUTO) 0.2 X10'3 (0-0.9); EOSINOPHILS % (AUTO) 3.5 % (0-6); HEMATOCRIT 40.8 % (42.0-52.0); HEMOGLOBIN 13.5 g/dl (14.0-17.9); LYMPHOCYTES # (AUTO) 0.7 X10'3 (1.1-4.8); LYMPHOCYTES % (AUTO) 10.4 % (21-51); MEAN CORPUSCULAR HEMOGLOBIN 30.2 PG (27.0-31.0); MEAN CORPUSCULAR VOLUME 91.4 FL (78-98); MEAN PLATELET VOLUME 9.2 FL (7.4-10.4); MONOCYTES # (AUTO) 0.7 X10'3 (0-0.9); MONOCYTES % (AUTO) 11.1 % (2-12); NEUTROPHILS % (AUTO) 74.8 % (42-75); PLATELET COUNT 89 X10'3 (140-440); RED BLOOD COUNT 4.46 X10'6 (4.70-6.10); RED CELL DISTRIBUTION WIDTH 17.5 % (11.5-14.5); WHITE BLOOD COUNT 6.7 X10'3 (4.5-11.0)
[2024-04-20] MEDS: docusate sodium 100mg/10ml UD cup PO SCH (07:25)
[2024-04-20] MEDS: metolazone 2.5mg tablet PO SCH (07:32)
[2024-04-20] MEDS: risperiDONE 0.5mg tablet PO SCH (11:32)
[2024-04-20] MEDS: VANCOMYCIN LEVEL IV ONE (11:34)
[2024-04-20] MEDS: lactulose 20gm/30ml cup PO SCH (14:12)
[2024-04-20] MEDS: thiamine 100mg/ml 2ml inj. IV SCH (14:12)
[2024-04-20] MEDS: erythromycin ethylsuccinate 200mg/5mL ORAL suspension NG SCH (16:00)
[2024-04-20] MEDS: docusate sodium 100mg/10ml UD cup NG SCH (20:11)
[2024-04-20] MEDS: VANCOmycin 1250MG/NS 250ml Bag 250 ML IV SCH (20:11)
[2024-04-20] MEDS: lactulose 20gm/30ml cup NG SCH (20:11)
[2024-04-20] MEDS: metolazone 2.5mg tablet NG SCH (20:12)
[2024-04-21] VITALS (48 sets, daily range): BP systolic 130–171; BP diastolic 66–87; PULSE 101–118; RESP 16–46; O2SAT 91–97
[2024-04-21 03:44] LABS: ABG BASE EXCESS 11.8 mmol/L (-2.0-3.0); ABG OXYGEN SATURATION 90.3 % (94.0-98.0); ABG PCO2 (T) 55.8 mmHg (35.0-48.0); ABG PH (T) 7.453 (7.350-7.450); ABG PO2 (T) 57.9 mmHg (83.0-108.0); ALLEN'S TEST Modified; FCOHb 1.4 % (0.5-1.5); FHHb 9.5 % (0.0-5.0); FMetHb 0.3 % (0.0-1.5); FO2Hb 88.8 % (94.0-98.0); MODE PRVC; PATIENT TEMPERATURE 37.5; PEEP 7 cm H2O; RESPIRATORY RATE 16 b/min; TIDAL VOLUME 500 mL; TOTAL HEMOGLOBIN 15.4 G/dl (13.5-17.5)
[2024-04-21 04:22] LABS: BASOPHILS % (AUTO) 0.5 % (0-1); EOSINOPHILS # (AUTO) 0.2 X10'3 (0-0.9); EOSINOPHILS % (AUTO) 2.5 % (0-6); HEMATOCRIT 43.4 % (42.0-52.0); HEMOGLOBIN 14.3 g/dl (14.0-17.9); LYMPHOCYTES # (AUTO) 1.2 X10'3 (1.1-4.8); LYMPHOCYTES % (AUTO) 13.8 % (21-51); MEAN CORPUSCULAR HEMOGLOBIN 29.4 PG (27.0-31.0); MEAN CORPUSCULAR HGB CONC 32.8 g/dL (33.0-36.5); MEAN CORPUSCULAR VOLUME 89.7 FL (78-98); MEAN PLATELET VOLUME 8.7 FL (7.4-10.4); MONOCYTES # (AUTO) 1.1 X10'3 (0-0.9); MONOCYTES % (AUTO) 12.3 % (2-12); NEUTROPHILS # (AUTO) 6.1 X10'3 (1.8-7.7); NEUTROPHILS % (AUTO) 70.9 % (42-75); PLATELET COUNT 116 X10'3 (140-440); RED BLOOD COUNT 4.84 X10'6 (4.70-6.10); RED CELL DISTRIBUTION WIDTH 16.3 % (11.5-14.5); WHITE BLOOD COUNT 8.6 X10'3 (4.5-11.0)
[2024-04-21 04:35] LABS: ALANINE AMINOTRANSFERASE 159 U/L (12-78); ALBUMIN 3.4 G/DL (3.4-5.0); ALBUMIN/GLOBULIN RATIO 0.8 (1.1-1.5); ALKALINE PHOSPHATASE 97 IU/L (46-116); ANION GAP 5 (8-16); ASPARTATE AMINO TRANSFERASE 153 U/L (10-37); BILIRUBIN,TOTAL 1.5 MG/DL (0.1-1.0); BLOOD UREA NITROGEN 14 MG/DL (7-18); BUN/CREATININE RATIO 18.7 (10.0-20.0); CALCIUM 9.3 MG/DL (8.5-10.1); CHLORIDE 90 MMOL/L (99-107); CREATININE 0.75 MG/DL (0.60-1.10); GLUCOSE 171 MG/DL (70-104); POTASSIUM 3.6 MMOL/L (3.5-5.1); SODIUM 131 MMOL/L (135-145); TOTAL CARBON DIOXIDE 35.7 MMOL/L (24-32); TOTAL PROTEIN 7.5 G/DL (6.4-8.2); eCRCL 100 ML/MIN; eGFR > 90 ML/MIN
[2024-04-21] MEDS: folic acid 1mg/0.2ml inj IV SCH (07:57)
[2024-04-21] MEDS: risperiDONE 0.5mg tablet NG SCH (09:31)
[2024-04-21] MEDS: COMMUNICATION ORDER 1 EA MISC MC ONE (14:03)
[2024-04-21] MEDS: VANCOMYCIN LEVEL IV ONE (19:30)
[2024-04-21 21:56] LABS: ALANINE AMINOTRANSFERASE 135 U/L (12-78); ALBUMIN 3.3 G/DL (3.4-5.0); ALBUMIN/GLOBULIN RATIO 0.9 (1.1-1.5); ALKALINE PHOSPHATASE 89 IU/L (46-116); ANION GAP 7 (8-16); ASPARTATE AMINO TRANSFERASE 91 U/L (10-37); BILIRUBIN,TOTAL 1.5 MG/DL (0.1-1.0); BLOOD UREA NITROGEN 16 MG/DL (7-18); BUN/CREATININE RATIO 19.3 (10.0-20.0); CHLORIDE 91 MMOL/L (99-107); CREATININE 0.83 MG/DL (0.60-1.10); GLUCOSE 225 MG/DL (70-104); PHOSPHORUS 3.6 MG/DL (2.3-4.5); SODIUM 134 MMOL/L (135-145); TOTAL CARBON DIOXIDE 36.3 MMOL/L (24-32); TOTAL PROTEIN 7.1 G/DL (6.4-8.2); eCRCL 90 ML/MIN; eGFR > 90 ML/MIN
[2024-04-21 22:43] LABS: VANCOMYCIN,TROUGH 169.2 ug/mL (10.0-20.0)
[2024-04-22] VITALS (44 sets, daily range): BP systolic 95–161; BP diastolic 58–91; PULSE 63–105; RESP 14–32; O2SAT 90–100
[2024-04-22] MEDS: erythromycin ethylsuccinate 200mg/5mL ORAL suspension NG SCH (01:19)
[2024-04-22] MEDS: dexmedetomidin/NS 400mcg/100ml 100 ML IV PRN (01:20)
[2024-04-22 02:42] LABS: BASOPHILS % (AUTO) 0.4 % (0-1); EOSINOPHILS # (AUTO) 0.2 X10'3 (0-0.9); EOSINOPHILS % (AUTO) 1.4 % (0-6); HEMATOCRIT 43.2 % (42.0-52.0); LYMPHOCYTES # (AUTO) 1.4 X10'3 (1.1-4.8); LYMPHOCYTES % (AUTO) 12.4 % (21-51); MEAN CORPUSCULAR HEMOGLOBIN 28.8 PG (27.0-31.0); MEAN CORPUSCULAR HGB CONC 32.4 g/dL (33.0-36.5); MEAN CORPUSCULAR VOLUME 88.9 FL (78-98); MEAN PLATELET VOLUME 8.3 FL (7.4-10.4); MONOCYTES # (AUTO) 1.2 X10'3 (0-0.9); MONOCYTES % (AUTO) 10.9 % (2-12); NEUTROPHILS # (AUTO) 8.5 X10'3 (1.8-7.7); NEUTROPHILS % (AUTO) 74.9 % (42-75); PLATELET COUNT 141 X10'3 (140-440); RED BLOOD COUNT 4.85 X10'6 (4.70-6.10); RED CELL DISTRIBUTION WIDTH 16.3 % (11.5-14.5); WHITE BLOOD COUNT 11.3 X10'3 (4.5-11.0)
[2024-04-22 02:55] LABS: ALANINE AMINOTRANSFERASE 133 U/L (12-78); ALBUMIN 3.4 G/DL (3.4-5.0); ALBUMIN/GLOBULIN RATIO 0.9 (1.1-1.5); ALKALINE PHOSPHATASE 93 IU/L (46-116); ANION GAP 6 (8-16); ASPARTATE AMINO TRANSFERASE 82 U/L (10-37); BILIRUBIN,TOTAL 1.3 MG/DL (0.1-1.0); BLOOD UREA NITROGEN 16 MG/DL (7-18); BUN/CREATININE RATIO 20.3 (10.0-20.0); CALCIUM 9.4 MG/DL (8.5-10.1); CHLORIDE 92 MMOL/L (99-107); CREATININE 0.79 MG/DL (0.60-1.10); GLUCOSE 227 MG/DL (70-104); MAGNESIUM 2.1 MG/DL (1.5-2.4); PHOSPHORUS 3.1 MG/DL (2.3-4.5); POTASSIUM 3.3 MMOL/L (3.5-5.1); SODIUM 134 MMOL/L (135-145); TOTAL CARBON DIOXIDE 36.1 MMOL/L (24-32); TOTAL PROTEIN 7.4 G/DL (6.4-8.2); eCRCL 94 ML/MIN; eGFR > 90 ML/MIN
[2024-04-22 04:44] LABS: ABG BASE EXCESS 10.6 mmol/L (-2.0-3.0); ABG HCO3 35.8 mmol/L (21.0-28.0); ABG OXYGEN SATURATION 94.5 % (94.0-98.0); ABG PCO2 (T) 48.8 mmHg (35.0-48.0); ABG PH (T) 7.483 (7.350-7.450); ALLEN'S TEST Modified; FHHb 5.4 % (0.0-5.0); FMetHb 0.3 % (0.0-1.5); FO2Hb 93.3 % (94.0-98.0); MODE vent-ac prvc; PATIENT TEMPERATURE 37.1; PEEP 7 cm H2O; RESPIRATORY RATE 16 b/min; TIDAL VOLUME 500 mL; TOTAL HEMOGLOBIN 15.3 G/dl (13.5-17.5)
[2024-04-22] MEDS: FENTANYL 1000MCG/NS 100 ML BAG /PF IV SCH (05:03)
[2024-04-22] MEDS: VANCOMYCIN LEVEL IV ONE (09:00)
[2024-04-22] MEDS: VANCOmycin 1250MG/NS 250ml Bag 250 ML IV SCH (13:00)
[2024-04-22] MEDS: COMMUNICATION ORDER 1 EA MISC MC ONE (16:54)
[2024-04-23] VITALS (36 sets, daily range): BP systolic 105–183; BP diastolic 59–99; PULSE 61–169; RESP 16–36; O2SAT 90–98
[2024-04-23] MEDS: valproic acid 250mg/5ml UD oral syrup PO ONE (00:01)
[2024-04-23 02:07] LABS: BASOPHILS # (AUTO) 0.1 X10'3 (0-0.2); BASOPHILS % (AUTO) 0.4 % (0-1); EOSINOPHILS # (AUTO) 0.2 X10'3 (0-0.9); EOSINOPHILS % (AUTO) 1.7 % (0-6); HEMATOCRIT 40.7 % (42.0-52.0); HEMOGLOBIN 13.2 g/dl (14.0-17.9); LYMPHOCYTES # (AUTO) 1.5 X10'3 (1.1-4.8); LYMPHOCYTES % (AUTO) 11.8 % (21-51); MEAN CORPUSCULAR HEMOGLOBIN 29.3 PG (27.0-31.0); MEAN CORPUSCULAR HGB CONC 32.6 g/dL (33.0-36.5); MEAN PLATELET VOLUME 8.8 FL (7.4-10.4); MONOCYTES # (AUTO) 0.9 X10'3 (0-0.9); MONOCYTES % (AUTO) 7.4 % (2-12); NEUTROPHILS # (AUTO) 9.8 X10'3 (1.8-7.7); NEUTROPHILS % (AUTO) 78.7 % (42-75); PLATELET COUNT 151 X10'3 (140-440); RED BLOOD COUNT 4.52 X10'6 (4.70-6.10); RED CELL DISTRIBUTION WIDTH 16.6 % (11.5-14.5); WHITE BLOOD COUNT 12.5 X10'3 (4.5-11.0)
[2024-04-23 02:18] LABS: ALANINE AMINOTRANSFERASE 87 U/L (12-78); ALBUMIN 2.8 G/DL (3.4-5.0); ALBUMIN/GLOBULIN RATIO 0.8 (1.1-1.5); ALKALINE PHOSPHATASE 75 IU/L (46-116); ANION GAP 7 (8-16); ASPARTATE AMINO TRANSFERASE 45 U/L (10-37); BILIRUBIN,TOTAL 0.9 MG/DL (0.1-1.0); BLOOD UREA NITROGEN 21 MG/DL (7-18); BUN/CREATININE RATIO 30.9 (10.0-20.0); CALCIUM 8.7 MG/DL (8.5-10.1); CHLORIDE 99 MMOL/L (99-107); CREATININE 0.68 MG/DL (0.60-1.10); GLUCOSE 201 MG/DL (70-104); PHOSPHORUS 3.1 MG/DL (2.3-4.5); POTASSIUM 3.1 MMOL/L (3.5-5.1); SODIUM 137 MMOL/L (135-145); TOTAL CARBON DIOXIDE 31.5 MMOL/L (24-32); TOTAL PROTEIN 6.3 G/DL (6.4-8.2); eCRCL 110 ML/MIN; eGFR > 90 ML/MIN
[2024-04-23 04:53] LABS: ABG BASE EXCESS 8.8 mmol/L (-2.0-3.0); ABG HCO3 33.3 mmol/L (21.0-28.0); ABG PCO2 (T) 44.3 mmHg (35.0-48.0); ABG PH (T) 7.494 (7.350-7.450); ABG PO2 (T) 68.2 mmHg (83.0-108.0); ALLEN'S TEST POSITIVE; FHHb 5.9 % (0.0-5.0); FO2Hb 93.1 % (94.0-98.0); MODE VENT - AC; PATIENT TEMPERATURE 36.9; PEEP 7 cm H2O; RESPIRATORY RATE 16 b/min; TIDAL VOLUME 500 mL; TOTAL HEMOGLOBIN 15.8 G/dl (13.5-17.5)
[2024-04-23] MEDS ORDERED: POTASSIUM CHLORIDE 20 MEQ/15 ML oral solution NG SCH (11:17)
[2024-04-23] MEDS ORDERED: DEXTROSE 15 GM of carb/4 tabs (each vial/BOTTLE has 4 tablets) PO PRN ×2 (11:38→11:39)
[2024-04-23] MEDS ORDERED: docusate sodium 100mg/10ml UD cup PO SCH (11:39)
[2024-04-23] MEDS ORDERED: lactulose 20gm/30ml cup PO SCH (11:41)
[2024-04-23] MEDS ORDERED: magnesium hydroxide 30ml (MOM) UD suspension PO PRN (11:41)
[2024-04-23] MEDS ORDERED: POTASSIUM CHLORIDE 20 MEQ/15 ML oral solution PO PRN ×2 (11:42)
[2024-04-23] MEDS ORDERED: risperiDONE 0.5mg tablet NG SCH (11:43)
[2024-04-23] MEDS: VANCOMYCIN LEVEL IV ONE (12:30)
[2024-04-23] MEDS: POTASSIUM CHLORIDE 20 MEQ/15 ML oral solution PO SCH (14:06)
[2024-04-23] MEDS: amiodarone/D5 360MG/200ML BAG 200 ML IV SCH (16:55)
[2024-04-23] MEDS: amiodarone 150mg/dext, iso-os 100 ML IV ONE ×2 (16:59→17:10)
[2024-04-23] MEDS: amiodarone/D5 360MG/200ML BAG 200 ML IV ONE (17:00)
[2024-04-23] MEDS: erythromycin ethylsuccinate 200mg/5mL ORAL suspension PO SCH (17:10)
[2024-04-23] MEDS: valproic acid 250mg/5ml UD oral syrup PO SCH (21:12)
[2024-04-23] MEDS: docusate sod 100mg capsule PO SCH (21:12)
[2024-04-23] MEDS: metolazone 2.5mg tablet PO SCH (21:13)
[2024-04-23] MEDS: gabapentin 100mg capsule PO ONE (21:13)
[2024-04-23] MEDS: INSULIN LISPRO 100 UNIT/ML INSULN.PEN MULTI-DOSE SQ SCH (22:45)
[2024-04-23] MEDS: acetaminophen 325mg tablet PO PRN (23:50)
[2024-04-24] VITALS (35 sets, daily range): BP systolic 121–166; BP diastolic 66–97; PULSE 86–142; RESP 2–32; O2SAT 88–99
[2024-04-24] MEDS: gabapentin 100mg capsule PO ONE (02:44)
[2024-04-24 03:43] LABS: BASOPHILS # (AUTO) 0.1 X10'3 (0-0.2); EOSINOPHILS # (AUTO) 0.2 X10'3 (0-0.9); EOSINOPHILS % (AUTO) 1.3 % (0-6); HEMATOCRIT 45.4 % (42.0-52.0); HEMOGLOBIN 15.1 g/dl (14.0-17.9); LYMPHOCYTES # (AUTO) 1.8 X10'3 (1.1-4.8); LYMPHOCYTES % (AUTO) 13.3 % (21-51); MEAN CORPUSCULAR HEMOGLOBIN 29.6 PG (27.0-31.0); MEAN CORPUSCULAR HGB CONC 33.2 g/dL (33.0-36.5); MEAN CORPUSCULAR VOLUME 89.2 FL (78-98); MEAN PLATELET VOLUME 8.8 FL (7.4-10.4); MONOCYTES # (AUTO) 1.2 X10'3 (0-0.9); NEUTROPHILS # (AUTO) 10.1 X10'3 (1.8-7.7); NEUTROPHILS % (AUTO) 75.4 % (42-75); PLATELET COUNT 197 X10'3 (140-440); RED BLOOD COUNT 5.09 X10'6 (4.70-6.10); RED CELL DISTRIBUTION WIDTH 16.8 % (11.5-14.5); WHITE BLOOD COUNT 13.4 X10'3 (4.5-11.0)
[2024-04-24 03:56] LABS: ALANINE AMINOTRANSFERASE 105 U/L (12-78); ALBUMIN 3.1 G/DL (3.4-5.0); ALBUMIN/GLOBULIN RATIO 0.7 (1.1-1.5); ALKALINE PHOSPHATASE 93 IU/L (46-116); ANION GAP 6 (8-16); ASPARTATE AMINO TRANSFERASE 62 U/L (10-37); BILIRUBIN,TOTAL 0.9 MG/DL (0.1-1.0); BLOOD UREA NITROGEN 16 MG/DL (7-18); BUN/CREATININE RATIO 21.9 (10.0-20.0); CALCIUM 9.5 MG/DL (8.5-10.1); CHLORIDE 96 MMOL/L (99-107); CREATININE 0.73 MG/DL (0.60-1.10); GLUCOSE 148 MG/DL (70-104); MAGNESIUM 2.1 MG/DL (1.5-2.4); PHOSPHORUS 4.4 MG/DL (2.3-4.5); POTASSIUM 3.3 MMOL/L (3.5-5.1); SODIUM 138 MMOL/L (135-145); TOTAL CARBON DIOXIDE 36.2 MMOL/L (24-32); TOTAL PROTEIN 7.4 G/DL (6.4-8.2); eCRCL 102 ML/MIN; eGFR > 90 ML/MIN
[2024-04-24 05:24] LABS: TOTAL CELLS COUNTED 100
[2024-04-24 05:28] LABS: ANISOCYTOSIS 1+; PLATELET ESTIMATE NORMAL
[2024-04-24 05:29] LABS: POLYCHROMASIA 1+; STOMATOCYTES 2+
[2024-04-24] MEDS: acetaminophen 325mg tablet PO PRN (09:43)
[2024-04-24] MEDS: risperiDONE 0.5mg tablet PO SCH (10:48)
[2024-04-24] MEDS ORDERED: ketorolac trometh 15mg/ml vial 15 MG/ML ML IM PRN (11:00)
[2024-04-24] MEDS: gabapentin 100mg capsule PO SCH (11:23)
[2024-04-24] MEDS: ketorolac trometh 15mg/ml vial 15 MG/ML ML IV PRN (11:26)
[2024-04-25] VITALS (39 sets, daily range): BP systolic 100–167; BP diastolic 35–98; PULSE 84–114; RESP 14–44; O2SAT 90–98
[2024-04-25 02:54] LABS: BASOPHILS # (AUTO) 0.1 X10'3 (0-0.2); BASOPHILS % (AUTO) 0.5 % (0-1); EOSINOPHILS # (AUTO) 0.3 X10'3 (0-0.9); EOSINOPHILS % (AUTO) 1.9 % (0-6); HEMATOCRIT 47.4 % (42.0-52.0); HEMOGLOBIN 15.3 g/dl (14.0-17.9); LYMPHOCYTES # (AUTO) 1.7 X10'3 (1.1-4.8); LYMPHOCYTES % (AUTO) 12.4 % (21-51); MEAN CORPUSCULAR HEMOGLOBIN 29.2 PG (27.0-31.0); MEAN CORPUSCULAR HGB CONC 32.2 g/dL (33.0-36.5); MEAN CORPUSCULAR VOLUME 90.8 FL (78-98); MEAN PLATELET VOLUME 8.7 FL (7.4-10.4); MONOCYTES # (AUTO) 1.1 X10'3 (0-0.9); MONOCYTES % (AUTO) 7.9 % (2-12); NEUTROPHILS # (AUTO) 10.5 X10'3 (1.8-7.7); NEUTROPHILS % (AUTO) 77.3 % (42-75); PLATELET COUNT 260 X10'3 (140-440); RED BLOOD COUNT 5.23 X10'6 (4.70-6.10); RED CELL DISTRIBUTION WIDTH 16.9 % (11.5-14.5); WHITE BLOOD COUNT 13.6 X10'3 (4.5-11.0)
[2024-04-25 03:21] LABS: ALANINE AMINOTRANSFERASE 123 U/L (12-78); ALBUMIN/GLOBULIN RATIO 0.7 (1.1-1.5); ALKALINE PHOSPHATASE 84 IU/L (46-116); ANION GAP 4 (8-16); ASPARTATE AMINO TRANSFERASE 76 U/L (10-37); BILIRUBIN,TOTAL 0.8 MG/DL (0.1-1.0); BLOOD UREA NITROGEN 22 MG/DL (7-18); BUN/CREATININE RATIO 23.9 (10.0-20.0); CHLORIDE 97 MMOL/L (99-107); CREATININE 0.92 MG/DL (0.60-1.10); GLUCOSE 130 MG/DL (70-104); MAGNESIUM 2.2 MG/DL (1.5-2.4); PHOSPHORUS 4.6 MG/DL (2.3-4.5); SODIUM 137 MMOL/L (135-145); TOTAL CARBON DIOXIDE 36.2 MMOL/L (24-32); TOTAL PROTEIN 7.4 G/DL (6.4-8.2); eCRCL 81 ML/MIN; eGFR 83 ML/MIN
[2024-04-25 05:26] LABS: TOTAL CELLS COUNTED 100
[2024-04-25 05:28] LABS: ANISOCYTOSIS 1+; PLATELET ESTIMATE NORMAL
[2024-04-25 05:31] LABS: POLYCHROMASIA 1+; STOMATOCYTES FEW
[2024-04-25] MEDS: ondansetron/PF 4mg/2ml inj IV PRN (10:33)
[2024-04-25] MEDS: potassium Cl 20 mEq SR tablet PO PRN (19:55)
[2024-04-26] VITALS (39 sets, daily range): BP systolic 110–155; BP diastolic 57–91; PULSE 89–106; RESP 14–36; O2SAT 86–99
[2024-04-26 03:16] LABS: BASOPHILS # (AUTO) 0.1 X10'3 (0-0.2); BASOPHILS % (AUTO) 0.5 % (0-1); EOSINOPHILS # (AUTO) 0.2 X10'3 (0-0.9); EOSINOPHILS % (AUTO) 1.3 % (0-6); HEMOGLOBIN 14.6 g/dl (14.0-17.9); LYMPHOCYTES # (AUTO) 1.5 X10'3 (1.1-4.8); LYMPHOCYTES % (AUTO) 9.2 % (21-51); MEAN CORPUSCULAR HEMOGLOBIN 28.6 PG (27.0-31.0); MEAN CORPUSCULAR HGB CONC 31.8 g/dL (33.0-36.5); MEAN CORPUSCULAR VOLUME 90.1 FL (78-98); MEAN PLATELET VOLUME 8.7 FL (7.4-10.4); NEUTROPHILS # (AUTO) 13.6 X10'3 (1.8-7.7); PLATELET COUNT 267 X10'3 (140-440); RED CELL DISTRIBUTION WIDTH 16.4 % (11.5-14.5); WHITE BLOOD COUNT 16.4 X10'3 (4.5-11.0)
[2024-04-26 03:34] LABS: ANION GAP 3 (8-16); BLOOD UREA NITROGEN 22 MG/DL (7-18); BUN/CREATININE RATIO 23.4 (10.0-20.0); CALCIUM 8.7 MG/DL (8.5-10.1); CHLORIDE 94 MMOL/L (99-107); CREATININE 0.94 MG/DL (0.60-1.10); GLUCOSE 173 MG/DL (70-104); MAGNESIUM 2.1 MG/DL (1.5-2.4); PHOSPHORUS 4.6 MG/DL (2.3-4.5); POTASSIUM 3.4 MMOL/L (3.5-5.1); SODIUM 136 MMOL/L (135-145); TOTAL CARBON DIOXIDE 39.2 MMOL/L (24-32); eCRCL 79 ML/MIN; eGFR 81 ML/MIN
[2024-04-26 03:35] LABS: ALANINE AMINOTRANSFERASE 142 U/L (12-78); ALBUMIN 2.9 G/DL (3.4-5.0); ALBUMIN/GLOBULIN RATIO 0.7 (1.1-1.5); ALKALINE PHOSPHATASE 93 IU/L (46-116); ASPARTATE AMINO TRANSFERASE 90 U/L (10-37); BILIRUBIN,TOTAL 0.6 MG/DL (0.1-1.0); TOTAL PROTEIN 7.2 G/DL (6.4-8.2)
[2024-04-26] MEDS: potassium Cl 20 mEq SR tablet PO PRN (08:19)
[2024-04-27] VITALS (31 sets, daily range): BP systolic 90–157; BP diastolic 57–96; PULSE 82–97; RESP 17–33; TEMP 97.3–97.6; O2SAT 89–97
[2024-04-27 07:54] LABS: BASOPHILS # (AUTO) 0.1 X10'3 (0-0.2); BASOPHILS % (AUTO) 1.1 % (0-1); EOSINOPHILS # (AUTO) 0.3 X10'3 (0-0.9); EOSINOPHILS % (AUTO) 2.1 % (0-6); HEMATOCRIT 45.6 % (42.0-52.0); HEMOGLOBIN 14.6 g/dl (14.0-17.9); LYMPHOCYTES # (AUTO) 1.8 X10'3 (1.1-4.8); LYMPHOCYTES % (AUTO) 12.5 % (21-51); MEAN CORPUSCULAR HEMOGLOBIN 28.8 PG (27.0-31.0); MEAN CORPUSCULAR HGB CONC 32.1 g/dL (33.0-36.5); MEAN CORPUSCULAR VOLUME 89.9 FL (78-98); MEAN PLATELET VOLUME 8.6 FL (7.4-10.4); MONOCYTES # (AUTO) 0.8 X10'3 (0-0.9); MONOCYTES % (AUTO) 5.7 % (2-12); NEUTROPHILS % (AUTO) 78.6 % (42-75); PLATELET COUNT 288 X10'3 (140-440); RED BLOOD COUNT 5.08 X10'6 (4.70-6.10); RED CELL DISTRIBUTION WIDTH 16.5 % (11.5-14.5)
[2024-04-27 08:09] LABS: ALANINE AMINOTRANSFERASE 226 U/L (12-78); ALBUMIN 2.9 G/DL (3.4-5.0); ALBUMIN/GLOBULIN RATIO 0.7 (1.1-1.5); ALKALINE PHOSPHATASE 88 IU/L (46-116); ANION GAP 1 (8-16); ASPARTATE AMINO TRANSFERASE 153 U/L (10-37); BILIRUBIN,TOTAL 0.7 MG/DL (0.1-1.0); BLOOD UREA NITROGEN 19 MG/DL (7-18); BUN/CREATININE RATIO 21.1 (10.0-20.0); CALCIUM 8.7 MG/DL (8.5-10.1); CHLORIDE 91 MMOL/L (99-107); GLUCOSE 164 MG/DL (70-104); MAGNESIUM 1.9 MG/DL (1.5-2.4); PHOSPHORUS 3.9 MG/DL (2.3-4.5); POTASSIUM 3.3 MMOL/L (3.5-5.1); PREALBUMIN 19.7 MG/DL (19-36); SODIUM 136 MMOL/L (135-145); TOTAL PROTEIN 7.1 G/DL (6.4-8.2); eCRCL 83 ML/MIN; eGFR 85 ML/MIN
[2024-04-27 08:26] LABS: TOTAL CARBON DIOXIDE 44.1 MMOL/L (24-32)
[2024-04-27] MEDS ORDERED: Neutra Phos packet PO PRN (11:32)
[2024-04-27] MEDS: thiamine 100mg tablet PO SCH (12:06)
[2024-04-27] MEDS: VANCOMYCIN LEVEL IV ONE (12:30)
[2024-04-27] MEDS: lactose-reduced food (Ensure Enlive) - 237ml bottle PO SCH (13:00)
[2024-04-27] MEDS: ipratropium/albuterol 3ml nebule NEB SCH (14:17)
[2024-04-27] MEDS: furosemide 20MG tablet PO SCH (14:45)
[2024-04-27] MEDS: vancomycin 1,750 MG in NS 350ml IV soln IV SCH (23:52)
[2024-04-28] VITALS (24 sets, daily range): BP systolic 127–156; BP diastolic 68–87; PULSE 71–94; RESP 18–25; TEMP 97.3–98; O2SAT 90–96
[2024-04-28] MEDS: pantoprazole 40mg Tablet.DR PO SCH (08:01)
[2024-04-28] MEDS: folic acid 1mg tablet PO SCH (08:03)
[2024-04-28] MEDS: potassium Cl 20 mEq SR tablet PO SCH (08:03)
[2024-04-28] MEDS: multivitamins, therapeutics tablet PO SCH (08:04)
[2024-04-28] MEDS: budesonide 0.5mg/2ml UD nebule IH SCH (08:15)
[2024-04-28] MEDS ORDERED: ipratropium/albuterol 3ml nebule NEB PRN (08:15)
[2024-04-28] MEDS: metoprolol succinate 25mg (24-HOUR) SR. Tablet PO SCH (08:52)
[2024-04-28] MEDS: amiodarone 200mg tablet PO SCH (08:53)
[2024-04-28] MEDS: polyethylene glycol 3350 17gm powd pack PO SCH (20:20)
[2024-04-28 22:22] LABS: BASOPHILS # (AUTO) 0.1 X10'3 (0-0.2); BASOPHILS % (AUTO) 1.1 % (0-1); EOSINOPHILS # (AUTO) 0.5 X10'3 (0-0.9); HEMATOCRIT 45.2 % (42.0-52.0); HEMOGLOBIN 14.6 g/dl (14.0-17.9); LYMPHOCYTES # (AUTO) 2.1 X10'3 (1.1-4.8); LYMPHOCYTES % (AUTO) 17.7 % (21-51); MEAN CORPUSCULAR HEMOGLOBIN 29.3 PG (27.0-31.0); MEAN CORPUSCULAR HGB CONC 32.3 g/dL (33.0-36.5); MEAN CORPUSCULAR VOLUME 90.9 FL (78-98); MEAN PLATELET VOLUME 8.6 FL (7.4-10.4); MONOCYTES # (AUTO) 1.1 X10'3 (0-0.9); MONOCYTES % (AUTO) 9.2 % (2-12); NEUTROPHILS # (AUTO) 7.9 X10'3 (1.8-7.7); PLATELET COUNT 384 X10'3 (140-440); RED BLOOD COUNT 4.97 X10'6 (4.70-6.10); RED CELL DISTRIBUTION WIDTH 16.4 % (11.5-14.5); WHITE BLOOD COUNT 11.7 X10'3 (4.5-11.0)
[2024-04-28 22:33] LABS: ALANINE AMINOTRANSFERASE 248 U/L (12-78); ALBUMIN 3.1 G/DL (3.4-5.0); ALBUMIN/GLOBULIN RATIO 0.7 (1.1-1.5); ALKALINE PHOSPHATASE 98 IU/L (46-116); ASPARTATE AMINO TRANSFERASE 113 U/L (10-37); BILIRUBIN,TOTAL 0.6 MG/DL (0.1-1.0); BLOOD UREA NITROGEN 19 MG/DL (7-18); BUN/CREATININE RATIO 21.3 (10.0-20.0); CHLORIDE 93 MMOL/L (99-107); CREATININE 0.89 MG/DL (0.60-1.10); GLUCOSE 124 MG/DL (70-104); POTASSIUM 3.5 MMOL/L (3.5-5.1); SODIUM 137 MMOL/L (135-145); TOTAL PROTEIN 7.3 G/DL (6.4-8.2); eCRCL 84 ML/MIN; eGFR 86 ML/MIN
[2024-04-28 23:21] LABS: ANION GAP -1 (8-16); TOTAL CARBON DIOXIDE 45.4 MMOL/L (24-32)
[2024-04-29] VITALS (19 sets, daily range): BP systolic 102–157; BP diastolic 39–87; PULSE 72–91; RESP 15–22; TEMP 96.8–98.7; O2SAT 90–100
[2024-04-29] MEDS: furosemide 20MG tablet PO SCH (08:35)
[2024-04-29 08:56] LABS: POTASSIUM 3.2 MMOL/L (3.5-5.1)
[2024-04-29 09:54] LABS: BASOPHILS # (AUTO) 0.2 X10'3 (0-0.2); BASOPHILS % (AUTO) 1.4 % (0-1); EOSINOPHILS # (AUTO) 0.5 X10'3 (0-0.9); HEMATOCRIT 47.6 % (42.0-52.0); HEMOGLOBIN 15.2 g/dl (14.0-17.9); LYMPHOCYTES # (AUTO) 1.6 X10'3 (1.1-4.8); LYMPHOCYTES % (AUTO) 13.7 % (21-51); MEAN CORPUSCULAR HEMOGLOBIN 28.9 PG (27.0-31.0); MEAN CORPUSCULAR VOLUME 90.3 FL (78-98); MEAN PLATELET VOLUME 8.7 FL (7.4-10.4); MONOCYTES # (AUTO) 0.7 X10'3 (0-0.9); MONOCYTES % (AUTO) 5.8 % (2-12); NEUTROPHILS # (AUTO) 8.6 X10'3 (1.8-7.7); NEUTROPHILS % (AUTO) 75.1 % (42-75); PLATELET COUNT 414 X10'3 (140-440); RED BLOOD COUNT 5.27 X10'6 (4.70-6.10); RED CELL DISTRIBUTION WIDTH 16.5 % (11.5-14.5); WHITE BLOOD COUNT 11.5 X10'3 (4.5-11.0)
[2024-04-29 10:38] LABS: ALANINE AMINOTRANSFERASE 246 U/L (12-78); ALBUMIN 3.3 G/DL (3.4-5.0); ALBUMIN/GLOBULIN RATIO 0.8 (1.1-1.5); ALKALINE PHOSPHATASE 95 IU/L (46-116); ANION GAP 7 (8-16); ASPARTATE AMINO TRANSFERASE 116 U/L (10-37); BILIRUBIN,TOTAL 0.9 MG/DL (0.1-1.0); BLOOD UREA NITROGEN 16 MG/DL (7-18); BUN/CREATININE RATIO 21.6 (10.0-20.0); CALCIUM 9.3 MG/DL (8.5-10.1); CHLORIDE 90 MMOL/L (99-107); CREATININE 0.74 MG/DL (0.60-1.10); GLUCOSE 132 MG/DL (70-104); SODIUM 136 MMOL/L (135-145); TOTAL CARBON DIOXIDE 39.5 MMOL/L (24-32); TOTAL PROTEIN 7.5 G/DL (6.4-8.2); eCRCL 101 ML/MIN; eGFR > 90 ML/MIN
[2024-04-29] MEDS ORDERED: VANCOMYCIN LEVEL IV ONE (11:30)
[2024-04-29] MEDS: potassium Cl 20 mEq SR tablet PO SCH (12:25)
[2024-04-29] MEDS: magnesium oxide 400mg tablet PO SCH (12:25)
[2024-04-30] VITALS (16 sets, daily range): BP systolic 116–143; BP diastolic 74–87; PULSE 67–112; RESP 10–25; TEMP 97.3–98.2; O2SAT 84–97
[2024-04-30 07:41] LABS: BASOPHILS # (AUTO) 0.1 X10'3 (0-0.2); BASOPHILS % (AUTO) 1.3 % (0-1); EOSINOPHILS # (AUTO) 0.5 X10'3 (0-0.9); EOSINOPHILS % (AUTO) 4.6 % (0-6); HEMATOCRIT 46.5 % (42.0-52.0); HEMOGLOBIN 15.8 g/dl (14.0-17.9); LYMPHOCYTES # (AUTO) 1.6 X10'3 (1.1-4.8); LYMPHOCYTES % (AUTO) 15.4 % (21-51); MEAN CORPUSCULAR HEMOGLOBIN 30.8 PG (27.0-31.0); MEAN CORPUSCULAR VOLUME 90.7 FL (78-98); MEAN PLATELET VOLUME 9.2 FL (7.4-10.4); MONOCYTES # (AUTO) 0.8 X10'3 (0-0.9); MONOCYTES % (AUTO) 8.3 % (2-12); NEUTROPHILS # (AUTO) 7.3 X10'3 (1.8-7.7); NEUTROPHILS % (AUTO) 70.4 % (42-75); PLATELET COUNT 452 X10'3 (140-440); RED BLOOD COUNT 5.13 X10'6 (4.70-6.10); WHITE BLOOD COUNT 10.3 X10'3 (4.5-11.0)
[2024-04-30 07:49] LABS: PREALBUMIN 20.1 MG/DL (19-36)
[2024-05-01] VITALS (9 sets, daily range): BP systolic 97–141; BP diastolic 51–82; PULSE 79–89; RESP 14–20; TEMP 97.3–98.9; O2SAT 92–98
[2024-05-01] MEDS ORDERED: acetaminophen 325mg tablet PO PRN (00:40)
[2024-05-01] MEDS: baclofen 10mg tablet PO PRN (01:41)
[2024-05-01 06:27] LABS: BASOPHILS # (AUTO) 0.1 X10'3 (0-0.2); BASOPHILS % (AUTO) 1.3 % (0-1); EOSINOPHILS # (AUTO) 0.4 X10'3 (0-0.9); EOSINOPHILS % (AUTO) 4.5 % (0-6); HEMATOCRIT 45.5 % (42.0-52.0); HEMOGLOBIN 14.9 g/dl (14.0-17.9); LYMPHOCYTES # (AUTO) 1.6 X10'3 (1.1-4.8); MEAN CORPUSCULAR HEMOGLOBIN 29.5 PG (27.0-31.0); MEAN CORPUSCULAR HGB CONC 32.8 g/dL (33.0-36.5); MEAN CORPUSCULAR VOLUME 90.2 FL (78-98); MEAN PLATELET VOLUME 8.5 FL (7.4-10.4); MONOCYTES # (AUTO) 0.7 X10'3 (0-0.9); MONOCYTES % (AUTO) 7.4 % (2-12); NEUTROPHILS # (AUTO) 6.6 X10'3 (1.8-7.7); NEUTROPHILS % (AUTO) 69.8 % (42-75); PLATELET COUNT 450 X10'3 (140-440); RED BLOOD COUNT 5.05 X10'6 (4.70-6.10); RED CELL DISTRIBUTION WIDTH 15.9 % (11.5-14.5); WHITE BLOOD COUNT 9.5 X10'3 (4.5-11.0)
[2024-05-01 06:39] LABS: ALANINE AMINOTRANSFERASE 178 U/L (12-78); ALBUMIN/GLOBULIN RATIO 0.8 (1.1-1.5); ALKALINE PHOSPHATASE 85 IU/L (46-116); ANION GAP 0 (8-16); ASPARTATE AMINO TRANSFERASE 80 U/L (10-37); BILIRUBIN,TOTAL 0.8 MG/DL (0.1-1.0); BLOOD UREA NITROGEN 16 MG/DL (7-18); BUN/CREATININE RATIO 18.4 (10.0-20.0); CALCIUM 9.2 MG/DL (8.5-10.1); CHLORIDE 91 MMOL/L (99-107); CREATININE 0.87 MG/DL (0.60-1.10); GLUCOSE 145 MG/DL (70-104); SODIUM 135 MMOL/L (135-145); eCRCL 86 ML/MIN; eGFR 88 ML/MIN
[2024-05-01 06:43] LABS: POTASSIUM 2.8 MMOL/L (3.5-5.1); TOTAL CARBON DIOXIDE 43.9 MMOL/L (24-32)
[2024-05-01] MEDS: potassium Cl 20 mEq SR tablet PO SCH (09:22)
[2024-05-01] MEDS ORDERED: POTA-197 PO (11:12)
[2024-05-01] MEDS ORDERED: METF750T46 PO (11:12)
[2024-05-01] MEDS ORDERED: AMIO100T4 PO (11:12)
[2024-05-01] MEDS ORDERED: GABA-530 PO (11:12)
[2024-05-01] MEDS ORDERED: MULT-25 PO (11:12)
[2024-05-01] MEDS ORDERED: polyethylene glycol 3350 pkt PO (11:12)
[2024-05-01] MEDS ORDERED: METO-395 PO (11:12)
[2024-05-01] MEDS ORDERED: MAGN400T56 PO (11:12)
[2024-05-01] MEDS ORDERED: PANT40TA54 PO (11:12)
[2024-05-01] MEDS ORDERED: thiamine tablet PO (11:12)
[2024-05-01] MEDS ORDERED: FOLI1TAB27 PO (11:12)
[2024-05-01] MEDS ORDERED: POLY119P2 PO (11:15)
[2024-05-01] MEDS ORDERED: THIA500T PO (11:15)
[2024-05-01] MEDS ORDERED: ADV50250 IH (11:17)
[2024-05-01] MEDS ORDERED: IPRA3AMP9 IH (11:18)
[2024-05-01] MEDS ORDERED: alb (11:19)
[2024-05-01] MEDS ORDERED: ALBU18HF2 IH (11:19)
[2024-05-01] MEDS ORDERED: FURO40TA4 PO (11:23)
[2024-05-01] MEDS ORDERED: BAC10T PO (11:32)
[2024-05-01] MEDS ORDERED: ALBU2.5V7 NEB (12:02)
[2024-05-01] MEDS ORDERED: APIX5TAB3 PO (15:28)
[2024-05-01] MEDS ORDERED: ATOR20TA66 PO (15:37)
== END 2024-05-01 17:41 | disposition home or self-care (01) | DRG 870 ==
LOC: ER 13:03 → CICU 2S 16:16 → PCU 3S 04-27 17:38
PROVIDERS: ADMIT Internal Medicine Critical Care Medicine; ATTEND Internal Medicine Critical Care Medicine
PROC: 5A1955Z Respiratory Ventilation, Greater than 96 Consecutive Hours (ICD-10-PCS; principal; 2024-04-13)
PROC: 0BH17EZ Insertion of Endotracheal Airway into Trachea, Via Natural or Artificial Opening (ICD-10-PCS; 2024-04-13)
PROC: 02HV33Z Insertion of Infusion Device into Superior Vena Cava, Percutaneous Approach (ICD-10-PCS; 2024-04-13)
PROC: 5A09357 Assistance with Respiratory Ventilation, Less than 24 Consecutive Hours, Continuous Positive Airway Pressure (ICD-10-PCS; 2024-04-21)
PROC: 02HV33Z Insertion of Infusion Device into Superior Vena Cava, Percutaneous Approach (ICD-10-PCS; 2024-04-22)
PROC: 5A09357 Assistance with Respiratory Ventilation, Less than 24 Consecutive Hours, Continuous Positive Airway Pressure (ICD-10-PCS; 2024-04-25)
PROC: 5A0955A Assistance with Respiratory Ventilation, Greater than 96 Consecutive Hours, High Flow/Velocity Cannula (ICD-10-PCS; 2024-04-25)
DX: A41.9 Sepsis, unspecified organism (principal); J18.9 Pneumonia, unspecified organism; J80 Acute respiratory distress syndrome; R65.21 Severe sepsis with septic shock; L03.113 Cellulitis of right upper limb; E66.2 Morbid (severe) obesity with alveolar hypoventilation; Z68.42 Body mass index [BMI] 45.0-49.9, adult; E87.4 Mixed disorder of acid-base balance; I25.10 Atherosclerotic heart disease of native coronary artery without angina pectoris; F31.9 Bipolar disorder, unspecified; R74.01 Elevation of levels of liver transaminase levels; E87.6 Hypokalemia; E83.51 Hypocalcemia; E88.09 Other disorders of plasma-protein metabolism, not elsewhere classified; G62.9 Polyneuropathy, unspecified; F10.229 Alcohol dependence with intoxication, unspecified; F41.9 Anxiety disorder, unspecified; G89.29 Other chronic pain; M54.9 Dorsalgia, unspecified; S09.8XXA Other specified injuries of head, initial encounter; W18.39XA Other fall on same level, initial encounter; Y93.89 Activity, other specified; Y92.89 Other specified places as the place of occurrence of the external cause; Y99.8 Other external cause status; I25.2 Old myocardial infarction; Z79.899 Other long term (current) drug therapy; Z88.5 Allergy status to narcotic agent; Z87.891 Personal history of nicotine dependence; Z87.11 Personal history of peptic ulcer disease; Z79.01 Long term (current) use of anticoagulants
CPT/HCPCS: 36415; 36569; 36600; 70450; 71045; 72125; 76942; 80053; 80202; 80305; 80320; 81001; 82150; 82803; 82948; 83036; 83605; 83690; 83735; 83880; 84100; 84132; 84134; 84145; 84478; 84484; 85007; 85008; 85018; 85025; 85610; 87040; 87070; 87077; 87081; 87088; 87186; 92508; 92616; 93005; 93306; 93922; 93925; 93930; 93970; 94002; 94003; 94640; 94660; 94760; 94799; 97116; 97161; 97530; 99285; A4314; A4615; A4620; A4628; A5200; A6196; A6209; A6212; A6213; A6222; A6250; A6258; A6449; A6590; A7015; A9900; C1751; G0378; J0282; J0696; J1100; J1644; J1652; J1815; J1885; J1940; J1956; J2060; J2250; J2405; J2470; J2560; J2704; J3010; J3370; J3411; J3480; J3490; J7030; J7040; J7050; J7060; P9045; P9047

== ENCOUNTER 2024-06-23 09:56 | Emergency (ER) | payer OTHER, MEDICAID ==
[~2024-06-23] VITALS: Ht 172.7 cm; Wt 131.8 kg
[~2024-06-23 09:56] MED LIST changes: -ACET-1015 PO; +ALBU18HF2 IH; +ALBU2.5V7 NEB; +AMIO100T4 PO; +APIX5TAB3 PO; +ATOR20TA66 PO; -ATOR40TA71 PO; +BAC10T PO; +FOLI1TAB27 PO; -FURO20TA4 PO; +GABA-530 PO; -LAMO100T PO; -LAMO25TA5 PO; -LISI-642 PO; +MAGN400T56 PO; +MULT-25 PO; -NICO-907 BC; +NO HOME MEDS; +PANT40TA54 PO; +POLY119P2 PO; -RIVA20TA PO; -SERT-153 PO; -SERT-433 PO; -TRAZ-251 PO; -VALP250C3 PO; -gabapentin capsule PO; -rocuronium 10mg/ml inj IV ONE
[2024-06-23 10:29] LABS: BASOPHILS # (AUTO) 0.1 X10'3 (0-0.2); BASOPHILS % (AUTO) 0.8 % (0-1); EOSINOPHILS % (AUTO) 0.1 % (0-6); HEMATOCRIT 50.8 % (42.0-52.0); HEMOGLOBIN 17.3 g/dl (14.0-17.9); LYMPHOCYTES # (AUTO) 2.9 X10'3 (1.1-4.8); LYMPHOCYTES % (AUTO) 30.5 % (21-51); MEAN CORPUSCULAR HEMOGLOBIN 30.8 PG (27.0-31.0); MEAN CORPUSCULAR VOLUME 90.4 FL (78-98); MEAN PLATELET VOLUME 8.1 FL (7.4-10.4); MONOCYTES # (AUTO) 0.6 X10'3 (0-0.9); MONOCYTES % (AUTO) 6.8 % (2-12); NEUTROPHILS # (AUTO) 5.9 X10'3 (1.8-7.7); NEUTROPHILS % (AUTO) 61.8 % (42-75); PLATELET COUNT 257 X10'3 (140-440); RED BLOOD COUNT 5.62 X10'6 (4.70-6.10); RED CELL DISTRIBUTION WIDTH 15.9 % (11.5-14.5); WHITE BLOOD COUNT 9.5 X10'3 (4.5-11.0)
[2024-06-23 10:30] VITALS: BP 146/91; PULSE 97; RESP 16; TEMP 98.7; O2SAT 98
[2024-06-23 10:44] LABS: ALANINE AMINOTRANSFERASE 31 U/L (12-78); ALBUMIN 3.5 G/DL (3.4-5.0); ALBUMIN/GLOBULIN RATIO 0.9 (1.1-1.5); ALKALINE PHOSPHATASE 96 IU/L (46-116); ANION GAP 15 (8-16); ASPARTATE AMINO TRANSFERASE 29 U/L (10-37); BILIRUBIN,TOTAL 0.7 MG/DL (0.1-1.0); BLOOD UREA NITROGEN 6 MG/DL (7-18); BUN/CREATININE RATIO 7.4 (10.0-20.0); CALCIUM 8.3 MG/DL (8.5-10.1); CHLORIDE 96 MMOL/L (99-107); CREATININE 0.81 MG/DL (0.60-1.10); GLUCOSE 121 MG/DL (70-104); POTASSIUM 3.4 MMOL/L (3.5-5.1); SODIUM 138 MMOL/L (135-145); TOTAL CARBON DIOXIDE 26.6 MMOL/L (24-32); TOTAL PROTEIN 7.5 G/DL (6.4-8.2); eCRCL 89 ML/MIN; eGFR > 90 ML/MIN
[2024-06-23 10:53] LABS: PRO BRAIN NATRIURETIC PEPTIDE 91 PG/ML (0-125)
[2024-06-23 11:12] LABS: ETHANOL 388 MG/DL (<10)
== END 2024-06-23 10:35 | disposition left against medical advice (07) ==
LOC: ER 09:56
DX: R07.89 Other chest pain (principal); R06.02 Shortness of breath; F10.129 Alcohol abuse with intoxication, unspecified; I25.2 Old myocardial infarction; I25.10 Atherosclerotic heart disease of native coronary artery without angina pectoris; F31.9 Bipolar disorder, unspecified; F41.9 Anxiety disorder, unspecified; G89.29 Other chronic pain; Z87.11 Personal history of peptic ulcer disease; Z88.5 Allergy status to narcotic agent; Z79.899 Other long term (current) drug therapy; Z79.01 Long term (current) use of anticoagulants; Z95.5 Presence of coronary angioplasty implant and graft; Z72.89 Other problems related to lifestyle; Y90.8 Blood alcohol level of 240 mg/100 ml or more
CPT/HCPCS: 36415; 80053; 80320; 83880; 84484; 85025; 93005; 99284